=== PATIENT | female | born 1935 | race Caucasian/White ===

== ENCOUNTER → 2017-05-25 | Outpatient (CLI) | payer MEDICARE, BC ==
[~2017-05-25] MED LIST: DENOSUMAB 60 MG/ML 1 ML SYRINGE SQ NR
[2017-05-25 08:59] VITALS: BP 193/91; PULSE 72; RESP 16; TEMP 97
== END | disposition home or self-care (01) ==
LOC: PROCWHC3 08:41
PROVIDERS: ATTEND Family Medicine
DX: M81.0 Age-related osteoporosis without current pathological fracture (principal)
CPT/HCPCS: 96372; J0897

== ENCOUNTER → 2017-11-26 | Outpatient (CLI) | payer MEDICARE, BC ==
[~2017-11-26] MED LIST changes: -DENOSUMAB 60 MG/ML 1 ML SYRINGE SQ NR; +DENOSUMAB 60 MG/ML 1 ML SYRINGE SQ ONE
[2017-11-26 13:49] VITALS: BP 177/82; PULSE 72; RESP 17; TEMP 97.9
== END | disposition home or self-care (01) ==
LOC: PROCWHC3 13:26
PROVIDERS: ATTEND Family Medicine
DX: M81.0 Age-related osteoporosis without current pathological fracture (principal)
CPT/HCPCS: 96372; J0897

== ENCOUNTER 2019-08-22 15:37 | Emergency (ER) | payer BC, MEDICARE ==
[2019-08-22 15:53] VITALS: RESP 18; TEMP 98.3
[2019-08-22] MEDS ORDERED: LIDOCAINE 1% INJ 10MG/ML (20 ML MDV) SQ ONE (16:02)
[2019-08-22] MEDS ORDERED: DIPH,PERTUS(ACELL)TETVAC-LF 0.5 ML VIAL IM ONE (16:02)
--- NOTE | 2019-08-22 16:42 | CT ---
EXAMINATION TYPE: CT brain roger wo con DATE OF EXAM: 08/22/2019 COMPARISON: None HISTORY: Trip and fall with right sided head injury. CT DLP: 1297.3 mGycm, Automated exposure control for dose reduction was used. CONTRAST: Patient injected with 0 mL of Isovue 300. CT of the brain is performed utilizing 3 mm thick sections through the posterior fossa and 3 mm thick sections through the remaining calvarium. Study is performed within 24 hours of arrival to the hospital. Soft tissue injury is over the right temporal and frontal regions. There is prominent soft tissue swe lling over the left frontal parietal vertex. No underlying fractures are evident. No abnormal hyperdensity is present to suggest an acute intracranial hemorrhage. No mass lesion is evident. No acute infarcts are evident. There is periventricular white matter hypodensity, likely on the basi s of chronic white matter ischemic changes. Ventricles and sulci are somewhat prominent for the patient age. Paranasal sinuses and mastoid air cells within the [id number] are clear. IMPRESSIONS: 1. Atrophy with periventricular white matter ischemic changes. 2. No acute intracranial process. 3. Prominent swelling over the right frontal parietal vertex with overlying soft tissue injury. CT cervical spine. COMPARISON: None CT of the cervical spine is performed in the axial plane at 2 mm thick sections. Reconstructed image s in the coronal, and sagittal plane are reviewed on the computer. No acute fractures are evident. There is a grade 1 spondylolisthesis of C2 anteriorly on C3. Degenerative disc changes are present throughout the cervical spine. Vertebral body heights are preserved. No spinal canal stenosis is evident. There is some left foraminal narrowing due to facet hypertrophy at C2-C3. Severe left foraminal steno sis is present due to uncovertebral joint hypertrophy and facet hypertrophy C3-4. Bilateral foraminal narrowing is present C4-5 due to uncovertebral joint hypertrophy. Milder foraminal narrowing is pres ent C5-C6 due to uncovertebral joint hypertrophy. Advanced Emphysematous changes are present within the upper lung nye. IMPRESSIONS: 1. Degenerative disc changes. 2. Grade 1 spondylolisthesis C2 anteriorly on C3. 3. Foraminal narrowing due to uncovertebral joint hypertrophy and facet hypertrophy discussed above. 4. Advanced emphysematous changes
[2019-08-22] MEDS ORDERED: LIDOCAINE 0.5%-EPI 1:200,000 50 ML VIAL SQ STA (18:26)
[2019-08-22] MEDS ORDERED: CEPHALEXIN 500MG STARTER PACK 4 CAP BTL PO STA (18:48)
--- NOTE | 2019-08-22 18:50 | ED ---
Head Injury HPI - General Chief complaint: Head Injury Stated complaint: fall, laceration Time Seen by Provider: 08/22/19 16:03 Source: patient Mode of arrival: ambulatory Limitations: no limitations - History of Present Illness Initial comments: Pleasant well appearing 84yo female with no history of anticoagulation is presenting today for chief complaint of fall with right-sided scalp laceration. Patient states that she was moving too fast and lost her balance outside she states she could have possibly slipped on ice. Patient states she fell striking her scalp on a brick. Patient states they're unable to control the bleeding at home and presented to the ER for evaluation. Patient denies any headache dizziness nausea vomiting neck pain denies any pain of the extremities upper and lower back. Patient denies any chest pain shortness of breath and states she was feeling normal prior to the trip and fall. She states she did not lose consciousness. Patient has no other complaints upon arrival she appears well in no distress. Bandage in place on head. - Related Data Home Medications Medication Instructions Recorded Confirmed Aspirin [Adult Low Dose Aspirin EC] 81 mg PO HS 11/26/17 08/22/19 Alendronate Sodium [Fosamax] 70 mg PO BUI 08/22/19 08/22/19 Atorvastatin [Lipitor] 80 mg PO HS 08/22/19 08/22/19 Calcium Carbonate [Calcium] 600 mg PO HS 08/22/19 08/22/19 Cholecalciferol [Vitamin D3 (25 1,000 unit PO HS 08/22/19 08/22/19 Mcg = 1000 Iu)] Enalapril [Vasotec] 10 mg PO DAILY 08/22/19 08/22/19 Enalapril [Vasotec] 20 mg PO HS 08/22/19 08/22/19 Hydrochlorothiazide [Hydrodiuril] 25 mg PO DAILY 08/22/19 08/22/19 Metoprolol Succinate [Toprol XL] 25 mg PO DAILY 08/22/19 08/22/19 Allergies/Adverse reactions: Allergies Allergy/AdvReac Type Severity Reaction Status Date / Time No Known Allergies Allergy Verified 08/22/19 22:46 Review of Systems ROS Statement: Those systems with pertinent positive or pertinent negative responses have been documented in the HPI. ROS Other: All systems not noted in ROS Statement are negative. Past Medical History Past Medical History: Hypertension Past Surgical History: Breast Surgery Past Psychological History: No Psychological Hx Reported Smoking Status: Former smoker Past Alcohol Use History: None Reported Past Drug Use History: None Reported General Exam - General Exam Comments Initial Comments: General: The patient is awake and alert, in no distress Eye: +3 mm pupils are equal, round and reactive to light, extra-ocular movements are intact. No nystagmus. There is normal conjunctiva bilaterally. No signs of icterus. Ears, nose, mouth and throat: There are moist mucous membranes and no oral lesions. No raccoon or amin sign, TM WNL b/l/ Neck: The neck is supple, there is no tenderness or JVD. No midline tenderness to patient the cervical spine with full range of motion, no tenderness with ROM. Cardiovascular: There is a regular rate and rhythm. No murmur, rub or gallop is appreciated. Respiratory: Lungs are clear to auscultation, respirations are non-labored, breath sounds are equal. No wheezes, stridor, rales, or rhonchi. Gastrointestinal: Soft, non-distended, non-tender abdomen without masses or organomegaly noted. There is no rebound or guarding present. Musculoskeletal: Normal ROM, no tenderness. Strength 5/5 of the UE and LE b/l. Sensation intact of the UE and LE b/l. Radial pulses equal bilaterally 2+. Neurological: A&O x 3. CN II-XII intact, There are no obvious motor or sensory deficits. Coordination appears grossly intact. Speech is normal. Skin: Skin is warm and dry and no rashes. Laceration deformity in the middle of a large hematoma of the right parietal region of the scalp, exposure of vasculature and adipose. Bleeding controlled on initial evaluation. No crepitus to palpation or indentions of the scalp. Psychiatric: Cooperative, appropriate mood & affect, normal judgment. Limitations: no limitations Course Vital Signs 08/22/19 08/22/19 08/22/19 15:49 18:56 20:13 Temperature 98.3 F 98.3 F Pulse Rate 71 63 63 Respiratory 18 18 18 Rate Blood Pressure 204/98 159/71 159/71 O2 Sat by Pulse 98 96 96 Oximetry Procedures - Laceration Laceration #1 Consent Obtained: verbal consent Indication: laceration Site: scalp Size (cm): 7 Description: linear Depth: simple, single layer Anesthetic Used: lidocaine 1%, with epi Anesthesia Technique: local infiltration Amount (mls): 6 Pre-repair: wound explored, irrigated extensively, deep structures intact Type of Sutures: other (ramiro) Size of Sutures: other (ramiro) Number of Sutures: 9 Technique: other (ramiro) Patient Tolerated Procedure: well, no complications Medical Decision Making - Medical Decision Making 84-year-old female presenting today for chief complaint of fall with head laceration, large hematoma. CT (-) for hemorrhage. No cervical pain, no ossesous injury noted. Entire scalp and laceration was cleanses and examinted localized one large laceration and was unable due to the taunt nature of the skin surrounding by hematoma to approximate the wound edges. Cleansed with iodine, irrigated. Dr. Valadez evaluated wound, 9 ramiro placed to approximate would edges after shaving area and obtaining consent to perform ramiro instead of suture, family and patient is aware that there will be less of a cosmetic appearance with ramiro vs suture. Patient bleeding controlled s/p staple placement. Monitored in the ER to assess for any further bleeding/expanding hematoma or dizziness. Patient continues to request discharge and multiple reevaluations patient continues to appears well, VS stable, no dizziness, or GOMEZ, bleeding controlled--- patient was discharged with PCP f/u as well as in 7 days for suture removal. Family beside and patient agreeable to discharge and return parameter. Disposition Clinical Impression: Head injury, Scalp hematoma, Scalp laceration, Fall Disposition: HOME SELF-CARE Condition: Good Instructions (If sedation given, give patient instructions): Care For Your Stitches (ED), Concussion (ED) Additional Instructions: Please use medication as discussed. Please follow-up with family doctor in the next 2 days, and return to the ER for more than a mild ooze of the incision, return for staple removal in 7 days. Please return to emergency room if the symptoms increase or worsen or for any other concerns. Is patient prescribed a controlled substance at d/c from ED?: No Referrals: Fredy Mo MD [Primary Care Provider] - 1-2 days Time of Disposition: 18:50
[2019-08-22 18:56] VITALS: BP 159/71; PULSE 63
== END 2019-08-22 20:15 | disposition home or self-care (01) ==
LOC: EC 15:37
DX: S01.01XA Laceration without foreign body of scalp, initial encounter (principal); I10 Essential (primary) hypertension; Z87.891 Personal history of nicotine dependence; Z79.82 Long term (current) use of aspirin; Z79.899 Other long term (current) drug therapy; Z23 Encounter for immunization; W01.198A Fall on same level from slipping, tripping and stumbling with subsequent striking against other object, initial encounter; Y93.89 Activity, other specified; Y92.89 Other specified places as the place of occurrence of the external cause; Z53.8 Procedure and treatment not carried out for other reasons
CPT/HCPCS: 72125; 70450; 90715; 99283; 12002; 90471; J2001

== ENCOUNTER 2019-08-22 22:13 | Emergency (ER) | payer MEDICARE ==
[2019-08-22 22:20] VITALS: TEMP 97.4
[2019-08-22] MEDS ORDERED: SODIUM CHLORIDE 0.9% 1,000 ML IV STA (23:13)
--- NOTE | 2019-08-22 23:13 | ED ---
Dizziness HPI - General Chief Complaint: Syncope Stated Complaint: Near Syncope Time Seen by Provider: 08/22/19 22:27 Source: EMS, RN notes reviewed, old records reviewed Mode of arrival: EMS Limitations: no limitations - History of Present Illness Initial Comments: This is an 84-year-old female seen in the ER for evaluation. Patient was seen earlier today for fall, follow the head injury lack repair, patient was given Keflex in the ER discharge home. Patient a near dizziness lightheadedness or for exudative pass out at home did not pass out headache was mildly worsen prior. Otherwise no new trauma no chest pain or shortness of breath no abdomi nal pain. No other new medications MD Complaint: dizziness (While arriving at home after ER stay) -: hour(s) Timing: gradual onset Description: lightheadedness, nausea, near-syncope History of Same: No History of Trauma: Yes Severity: mild Improves With: nothing Worsens With: nothing Associated Symptoms: weakness - Related Data Home Medications Medication Instructions Recorded Confirmed Aspirin [Adult Low Dose Aspirin EC] 81 mg PO HS 11/26/17 08/22/19 Alendronate Sodium [Fosamax] 70 mg PO BUI 08/22/19 08/22/19 Atorvastatin [Lipitor] 80 mg PO HS 08/22/19 08/22/19 Calcium Carbonate [Calcium] 600 mg PO HS 08/22/19 08/22/19 Cholecalciferol [Vitamin D3 (25 1,000 unit PO HS 08/22/19 08/22/19 Mcg = 1000 Iu)] Enalapril [Vasotec] 10 mg PO DAILY 08/22/19 08/22/19 Enalapril [Vasotec] 20 mg PO HS 08/22/19 08/22/19 Hydrochlorothiazide [Hydrodiuril] 25 mg PO DAILY 08/22/19 08/22/19 Metoprolol Succinate [Toprol XL] 25 mg PO DAILY 08/22/19 08/22/19 Allergies Allergy/AdvReac Type Severity Reaction Status Date / Time No Known Allergies Allergy Verified 08/22/19 22:46 Review of Systems ROS Statement: Those systems with pertinent positive or pertinent negative responses have been documented in the HPI. ROS Other: All systems not noted in ROS Statement are negative. Past Medical History Past Medical History: Hypertension History of Any Multi-Drug Resistant Organisms: None Reported Past Surgical History: Breast Surgery Past Psychological History: No Psychological Hx Reported Smoking Status: Former smoker Past Alcohol Use History: None Reported Past Drug Use History: None Reported General Exam Limitations: no limitations General appearance: alert, in no apparent distress Head exam: Present: normocephalic, normal inspection. Absent: atraumatic (Recent does have bandage on head) Eye exam: Present: normal appearance, PERRL, EOMI. Absent: scleral icterus, conjunctival injection, periorbital swelling ENT exam: Present: normal exam, mucous membranes moist Neck exam: Present: normal inspection. Absent: tenderness, meningismus, lymphadenopathy Respiratory exam: Present: normal lung sounds bilaterally. Absent: respiratory distress, wheezes, rales, rhonchi, stridor Cardiovascular Exam: Present: regular rate, normal rhythm, normal heart sounds. Absent: systolic murmur, diastolic murmur, rubs, gallop, clicks GI/Abdominal exam: Present: soft, normal bowel sounds. Absent: distended, tenderness, guarding, rebound, rigid Extremities exam: Present: normal inspection, full ROM, normal capillary refill. Absent: tenderness, pedal edema, joint swelling, calf tenderness Back exam: Present: normal inspection Neurological exam: Present: alert, oriented X3, CN II-XII intact Psychiatric exam: Present: normal affect, normal mood Skin exam: Present: warm, dry, intact, normal color. Absent: rash Course Vital Signs 08/22/19 22:15 Temperature 97.4 F L Pulse Rate 60 Respiratory 16 Rate Blood Pressure 128/74 O2 Sat by Pulse 99 Oximetry - Reevaluation(s) Reevaluation #1: 08/22/19 23:47 Medical record in the ER visit are reviewed Reevaluation #2: 08/22/19 23:47 Patient is able and white without difficulty EKG Findings - EKG Comments: EKG Findings:: EKG shows sinus bradycardia rate of 59, OH 134, QRS 90, QTc 477 Medical Decision Making - Medical Decision Making 84 female DF for evaluation of a near syncopal upon arrival at home dizziness is now resolved. No headache chest pain shortness breath or abdominal pain while she does have hyperactive unchanged from prior CT here in the ER is negative for acute disease a patient can be discharged home - Lab Data Result diagrams: 08/22/19 22:25 08/22/19 22:25 Lab Results 08/22/19 08/22/19 Range/Units 22:25 22:25 WBC 8.8 (3.8-10.6) k/uL RBC 3.81 (3.80-5.40) m/uL Hgb 11.1 L (11.4-16.0) gm/dL Hct 34.3 (34.0-46.0) % MCV 90.1 (80.0-100.0) fL MCH 29.1 (25.0-35.0) pg MCHC 32.3 (31.0-37.0) g/dL RDW 14.5 (11.5-15.5) % Plt Count 229 (150-450) k/uL Neutrophils % 76 % Lymphocytes % 15 % Monocytes % 5 % Eosinophils % 1 % Basophils % 1 % Neutrophils # 6.7 (1.3-7.7) k/uL Lymphocytes # 1.4 (1.0-4.8) k/uL Monocytes # 0.5 (0-1.0) k/uL Eosinophils # 0.1 (0-0.7) k/uL Basophils # 0.0 (0-0.2) k/uL Sodium 134 L (137-145) mmol/L Potassium 3.4 L (3.5-5.1) mmol/L Chloride 101 (98-107) mmol/L Carbon Dioxide 27 (22-30) mmol/L Anion Gap 6 mmol/L BUN 22 H (7-17) mg/dL Creatinine 0.73 (0.52-1.04) mg/dL Est GFR (CKD-EPI)AfAm 88 (>60 ml/min/1.73 sqM) Est GFR (CKD-EPI)NonAf 76 (>60 ml/min/1.73 sqM) Glucose 152 H (74-99) mg/dL Calcium 9.2 (8.4-10.2) mg/dL Phosphorus 4.0 (2.5-4.5) mg/dL Magnesium 2.0 (1.6-2.3) mg/dL Total Bilirubin 0.7 (0.2-1.3) mg/dL AST 33 (14-36) U/L ALT 14 (4-34) U/L Alkaline Phosphatase 75 (38-126) U/L Total Protein 5.9 L (6.3-8.2) g/dL Albumin 3.5 (3.5-5.0) g/dL - Radiology Data Radiology results: report reviewed (CT brain negative for acute disease), image reviewed Disposition Clinical Impression: Near syncope, Dizziness Disposition: HOME SELF-CARE Condition: Good Instructions (If sedation given, give patient instructions): Dizziness (ED) Is patient prescribed a controlled substance at d/c from ED?: No Referrals: Fredy Mo MD [Primary Care Provider] - 1-2 days
[2019-08-22 23:30] LABS: Basophils % (A) 1 %; Eosinophils # (A) 0.1 k/uL (0-0.7); Eosinophils % (A) 1 %; HCT 34.3 % (34.0-46.0); HGB 11.1 gm/dL (11.4-16.0); Lymphocytes # (A) 1.4 k/uL (1.0-4.8); Lymphocytes % (A) 15 %; MCH 29.1 pg (25.0-35.0); MCHC 32.3 g/dL (31.0-37.0); MCV 90.1 fL (80.0-100.0); Mean Platelet Volume 8.5; Monocytes # (A) 0.5 k/uL (0-1.0); Monocytes % (A) 5 %; Neutrophils # (A) 6.7 k/uL (1.3-7.7); Neutrophils % (A) 76 %; Platelet Count 229 k/uL (150-450); RBC 3.81 m/uL (3.80-5.40); RDW 14.5 % (11.5-15.5); WBC 8.8 k/uL (3.8-10.6)
--- NOTE | 2019-08-22 23:38 | CT ---
EXAMINATION TYPE: CT brain wo con DATE OF EXAM: 08/22/2019 COMPARISON: Today HISTORY: syncope CT DLP: 1170.4 mGycm Automated exposure control for dose reduction was used. Multiple axial sections were obtained of the brain without contrast. There is cerebral cortical atrophy. There is right posterior frontal scalp hematoma. There is no mass effect nor midline shift. There is no sign of intracranial hemorrhage. There is some mild patchy whi te matter hypodensity in both cerebral hemispheres. The skull base is intact. There is no evidence of a fracture. There are skin ramiro in the right frontal scalp. IMPRESSION: Right frontal scalp hematoma is decreased in thickness compared to exam earlier today. No acute intra cranial abnormality. There is some cerebral atrophy and chronic small vessel ischemia.
[2019-08-22 23:43] LABS: Albumin 3.5 g/dL (3.5-5.0); Calcium 9.2 mg/dL (8.4-10.2); Potassium 3.4 mmol/L (3.5-5.1); Total Bilirubin 0.7 mg/dL (0.2-1.3); Total Protein 5.9 g/dL (6.3-8.2)
[2019-08-22] MEDS ORDERED: POTASSIUM BICARBONATE/CIT AC 20 MEQ TABLET.EFF PO ONE (23:46)
[2019-08-22 23:54] LABS: Prothrombin Time 10.2 sec (9.0-12.0)
[2019-08-23 00:12] LABS: Partial Thromboplastin Time 19.5 sec (22.0-30.0)
[2019-08-23 00:48] VITALS: BP 122/60; PULSE 67; RESP 18
== END 2019-08-23 01:07 | disposition home or self-care (01) ==
LOC: EC 22:13
DX: R55 Syncope and collapse (principal); R42 Dizziness and giddiness; I10 Essential (primary) hypertension; Z79.899 Other long term (current) drug therapy; Z79.82 Long term (current) use of aspirin; Z87.891 Personal history of nicotine dependence
CPT/HCPCS: 36415; 70450; 80053; 83735; 83880; 84100; 84484; 85025; 85610; 85730; 93005; 96360; 99285

== ENCOUNTER → 2023-02-12 | Outpatient (CLI) | payer MEDICARE ==
--- NOTE | 2023-02-12 14:15 | US ---
EXAMINATION TYPE: US arterial LE single level DATE OF EXAM: 02/12/2023 1:56 PM CLINICAL INDICATION: Female, 87 years old with history of M79.669 PAIN IN LOWER LEG; History of: Smoker: Previous Hypertension: Yes Diabetic: No Hyperlipidemia: Yes TIA/CVA: No Previous Vascular Surgery: No IL: No Vascular Ulcers: No Claudication: No Gangrene: No Right Brachial Pressure: 134 Left Brachial Pressure: 147 Ankle-Brachial Indices: Right: 1.02 Left: 1.01 Toe Brachial Indices: Right: 0.65 Left: 0.70 IMPRESSION: 1. Normal [place] indices. 2. Borderline normal TBI indices. No diagnostic evidence of significant atherosclerotic
== END | disposition home or self-care (01) ==
LOC: RADUSWWP 12:47
PROVIDERS: ATTEND Family Medicine
DX: M79.669 Pain in unspecified lower leg (principal); E78.5 Hyperlipidemia, unspecified; I10 Essential (primary) hypertension; Z87.891 Personal history of nicotine dependence
CPT/HCPCS: 93922

== ENCOUNTER 2023-11-03 09:55 | Inpatient (IN) | payer MEDICARE ==
--- NOTE | 2023-11-03 10:47 | ED ---
General Adult HPI - General Chief complaint: Shortness of Breath Stated complaint: Fever Time Seen by Provider: 11/03/23 10:30 Source: patient, family, RN notes reviewed, old records reviewed Mode of arrival: ambulatory Limitations: no limitations - History of Present Illness Initial comments: 88-year-old female presenting with cough and dyspnea, has been present for the past 2 weeks but worse over the past 3 days. There is been fever. Nonproductive cough. Some confusion. Patient has history of COPD. No central chest pain. No abdominal pain. No lower extremity pain or swelling. - Related Data Home Medications Medication Instructions Recorded Confirmed Alendronate Sodium [Fosamax] 70 mg PO BUI 08/22/19 11/03/23 Atorvastatin [Lipitor] 80 mg PO DAILY 08/22/19 11/03/23 Metoprolol Succinate [Toprol XL] 25 mg PO DAILY 08/22/19 11/03/23 Albuterol Sulfate [Albuterol 2 puff PO RT-Q6H PRN 11/03/23 11/03/23 Sulfate Hfa] Ipratropium-Albuterol Nebulize 3 ml INHALATION RT-QID 11/03/23 11/03/23 [Duoneb 0.5 mg-3 mg/3 ml Soln] Losartan/Hydrochlorothiazide 1 tab PO DAILY 11/03/23 11/03/23 [Hyzaar 100-12.5 Tablet] Allergies Allergy/AdvReac Type Severity Reaction Status Date / Time No Known Allergies Allergy Verified 11/03/23 11:24 Review of Systems ROS Statement: Those systems with pertinent positive or pertinent negative responses have been documented in the HPI. ROS Other: All systems not noted in ROS Statement are negative. Past Medical History Past Medical History: Hypertension History of Any Multi-Drug Resistant Organisms: None Reported Past Surgical History: Breast Surgery Past Psychological History: No Psychological Hx Reported Past Alcohol Use History: None Reported Past Drug Use History: None Reported General Exam Limitations: no limitations General appearance: alert, in no apparent distress Head exam: Present: atraumatic, normocephalic Eye exam: Present: normal appearance, PERRL ENT exam: Present: normal exam Neck exam: Present: normal inspection. Absent: tenderness, meningismus Respiratory exam: Present: respiratory distress, wheezes, rhonchi, decreased breath sounds, prolonged expiratory Cardiovascular Exam: Present: regular rate, normal rhythm GI/Abdominal exam: Present: soft. Absent: distended, tenderness, guarding Extremities exam: Present: normal inspection, normal capillary refill Neurological exam: Present: alert, CN II-XII intact. Absent: motor sensory deficit Psychiatric exam: Present: normal affect, normal mood Skin exam: Present: warm, dry, intact Course Vital Signs 11/03/23 11/03/23 11/03/23 10:20 10:30 10:33 Temperature 98.3 F 98.9 F Pulse Rate 94 83 Respiratory 20 24 22 Rate Blood Pressure 107/65 112/55 O2 Sat by Pulse 76 L 86 L Oximetry 11/03/23 11/03/23 11/03/23 12:02 12:24 12:40 Temperature Pulse Rate 74 71 76 Respiratory Rate Blood Pressure 101/53 O2 Sat by Pulse 98 Oximetry 11/03/23 13:17 Temperature Pulse Rate 74 Respiratory 18 Rate Blood Pressure 91/50 O2 Sat by Pulse 94 L Oximetry Medical Decision Making - Medical Decision Making Was pt. sent in by a medical professional or institution (, PA, RISK ASSESSMENT CONSULTANT, urgent care, hospital, or care home...) When possible be specific @ -No Did you speak to anyone other than the patient for history (EMS, parent, family, police, friend...)? What history was obtained from this source @Patient's daughter Did you review nursing and triage notes (agree or disagree)? Why? @ -I reviewed and agree with nursing and triage notes Were old charts reviewed (outside hosp., previous admission, EMS record, old EKG, old radiological studies, urgent care reports/EKG's, care home records)? Report findings @ -No old charts were reviewed Differential Dyspnea: Coronary syndrome, arrhythmia, tamponade, asthma, COPD, pulmonary embolism, pneumonia, pneumothorax, pulmonary effusion, anaphylaxis, diabetic ketoacidosis, flailed chest, pulmonary contusion, diaphragmatic rupture, anemia, ne uromuscular, this is not meant to be an all-inclusive list. EKG interpreted by me (3pts min.). @EKG: Sinus rhythm rate of 74, IA interval 165, QRS duration 105, QTc [address] segment elevation. X-rays interpreted by me (1pt min.). @ -Chest x-ray shows hyperinflation, right lower lobe infiltrate consistent with pneumonia CT interpreted by me (1pt min.). @ -None done U/S interpreted by me (1pt. min.). @ -None done What testing was considered but not performed or refused? (CT, X-rays, U/S, lab s)? Why? @ -None What meds were considered but not given or refused? Why? @ -None Did you discuss the management of the patient with other professionals (professionals i.e. Dr., PA, RISK ASSESSMENT CONSULTANT, lab, RT, psych nurse, social security assessor, military lawyer, teacher, seal delivery vehicle officer, casework supervisor)? Give summary @[facility] physician group Was smoking cessation discussed for >3mins.? @ -No Was critical care preformed (if so, how long)? @Yes, 35 minutes Were there social determinants of health that impacted care today? How? (Ho melessness, low income, unemployed, alcoholism, drug addiction, transportation, low edu. Level, literacy, decrease access to med. care, half-way, rehab)? @ -No Was there de-escalation of care discussed even if they declined (Discuss DNR or withdrawal of care, Hospice)? DNR status @ -No What co-morbidities impacted this encounter? (DM, HTN, Smoking, COPD, CAD, Cancer, CVA, ARF, Chemo, Hep., AIDS, mental health diagnosis, sleep apnea, morbid obesity)? @COPD Was patient admitted / discharged? Hospital course, mention meds given and route, prescriptions, significant lab abnormalities, going to OR and other pertinent info. @ -88-year-old female with increased cough and dyspnea. Patient hypoxic upon arrival with wheezing and rhonchi bilaterally. She is afebrile. X-ray does show concern for developing pneumonia. She has a mild leukocytosis. She is anemic. She has an MK with elevated creatinine. After supplemental oxygen, albuterol, Atrovent, and steroids she is significantly improved. She will be admitted for COPD exacerbation with pneumonia. Undiagnosed new problem with uncertain prognosis? @ -No Drug Therapy requiring intensive monitoring for toxicity (Heparin, Nitro, Insulin, Cardizem)? @ -No Were any procedures done? @ -No Diagnosis/symptom? @COPD exacerbation, pneumonia Acute, or Chronic, or Acute on Chronic? @Acute Uncomplicated (without systemic symptoms) or Complicated (systemic symptoms)? @ -Default Side effects of treatment? @ -No Exacerbation, Progression, or Severe Exacerbation? @ -No Poses a threat to life or bodily function? How? (Chest pain, [place], [place], pneumonia, PE, COPD, DKA, ARF, appy, cholecystitis, CVA, Diverticulitis, Homicidal, Suicidal, threat to staff... and all critical care pts) @Yes, COPD, sepsis - Lab Data Result diagrams: 11/03/23 13:05 11/03/23 13:05 Lab Results 11/03/23 11/03/23 11/03/23 Range/Units 12:00 12:02 13:05 WBC 11.2 H (3.8-10.6) k/uL RBC 4.03 (3.80-5.40) m/uL Hgb 9.1 L (11.4-16.0) gm/dL Hct 31.0 L (34.0-46.0) % MCV 76.8 L (80.0-100.0) fL MCH 22.6 L (25.0-35.0) pg MCHC 29.5 L (31.0-37.0) g/dL RDW 16.4 H (11.5-15.5) % Plt Count 219 (150-450) k/uL MPV 9.4 Neutrophils % 88 % Lymphocytes % 4 % Monocytes % 5 % Eosinophils % 0 % Basophils % 0 % Neutrophils # 9.8 H (1.3-7.7) k/uL Lymphocytes # 0.4 L (1.0-4.8) k/uL Monocytes # 0.5 (0-1.0) k/uL Eosinophils # 0.0 (0-0.7) k/uL Basophils # 0.0 (0-0.2) k/uL Hypochromasia Marked Poikilocytosis Slight Anisocytosis Slight Microcytosis Slight PT 11.1 (10.0-12.5) sec INR 1.0 (<1.2) APTT 26.1 (22.0-30.0) sec VBG pH (7.31-7.41) VBG pCO2 (37-51) mmHg VBG HCO3 (24-28) mmol/L Sodium (137-145) mmol/L Potassium (3.5-5.1) mmol/L Chloride (98-107) mmol/L Carbon Dioxide (22-30) mmol/L Anion Gap mmol/L BUN (7-17) mg/dL Creatinine (0.52-1.04) mg/dL Est GFR (CKD-EPI)AfAm (>60 ml/min/1.73 sqM) Est GFR (CKD-EPI)NonAf (>60 ml/min/1.73 sqM) Glucose (74-99) mg/dL Plasma Lactic Acid Otis (0.7-2.0) mmol/L Calcium (8.4-10.2) mg/dL Magnesium (1.6-2.3) mg/dL Total Bilirubin (0.2-1.3) mg/dL AST (14-36) U/L ALT (4-34) U/L Alkaline Phosphatase (38-126) U/L Troponin I (0.000-0.034) ng/mL Total Protein (6.3-8.2) g/dL Albumin (3.5-5.0) g/dL Influenza Type A (PCR) Not Detected (Not Detectd) Influenza Type B (PCR) Not Detected (Not Detectd) RSV (PCR) Not Detected (Not Detectd) SARS-CoV-2 (PCR) Not Detected (Not Detectd) 11/03/23 11/03/23 11/03/23 Range/Units 13:05 13:05 13:05 WBC (3.8-10.6) k/uL RBC (3.80-5.40) m/uL Hgb (11.4-16.0) gm/dL Hct (34.0-46.0) % MCV (80.0-100.0) fL MCH (25.0-35.0) pg MCHC (31.0-37.0) g/dL RDW (11.5-15.5) % Plt Count (150-450) k/uL MPV Neutrophils % % Lymphocytes % % Monocytes % % Eosinophils % % Basophils % % Neutrophils # (1.3-7.7) k/uL Lymphocytes # (1.0-4.8) k/uL Monocytes # (0-1.0) k/uL Eosinophils # (0-0.7) k/uL Basophils # (0-0.2) k/uL Hypochromasia Poikilocytosis Anisocytosis Microcytosis PT (10.0-12.5) sec INR (<1.2) APTT (22.0-30.0) sec VBG pH (7.31-7.41) VBG pCO2 (37-51) mmHg VBG HCO3 (24-28) mmol/L Sodium 136 L (137-145) mmol/L Potassium 3.4 L (3.5-5.1) mmol/L Chloride 102 (98-107) mmol/L Carbon Dioxide 23 (22-30) mmol/L Anion Gap 11 mmol/L BUN 60 H (7-17) mg/dL Creatinine 1.64 H (0.52-1.04) mg/dL Est GFR (CKD-EPI)AfAm 32 (>60 ml/min/1.73 sqM) Est GFR (CKD-EPI)NonAf 28 (>60 ml/min/1.73 sqM) Glucose 117 H (74-99) mg/dL Plasma Lactic Acid Otis 0.8 (0.7-2.0) mmol/L Calcium 8.3 L (8.4-10.2) mg/dL Magnesium 2.3 (1.6-2.3) mg/dL Total Bilirubin 1.3 (0.2-1.3) mg/dL AST 52 H (14-36) U/L ALT 31 (4-34) U/L Alkaline Phosphatase 94 (38-126) U/L Troponin I <0.012 (0.000-0.034) ng/mL Total Protein 5.6 L (6.3-8.2) g/dL Albumin 2.9 L (3.5-5.0) g/dL Influenza Type A (PCR) (Not Detectd) Influenza Type B (PCR) (Not Detectd) RSV (PCR) (Not Detectd) SARS-CoV-2 (PCR) (Not Detectd) 11/03/23 Range/Units 13:05 WBC (3.8-10.6) k/uL RBC (3.80-5.40) m/uL Hgb (11.4-16.0) gm/dL Hct (34.0-46.0) % MCV (80.0-100.0) fL MCH (25.0-35.0) pg MCHC (31.0-37.0) g/dL RDW (11.5-15.5) % Plt Count (150-450) k/uL MPV Neutrophils % % Lymphocytes % % Monocytes % % Eosinophils % % Basophils % % Neutrophils # (1.3-7.7) k/uL Lymphocytes # (1.0-4.8) k/uL Monocytes # (0-1.0) k/uL Eosinophils # (0-0.7) k/uL Basophils # (0-0.2) k/uL Hypochromasia Poikilocytosis Anisocytosis Microcytosis PT (10.0-12.5) sec INR (<1.2) APTT (22.0-30.0) sec VBG pH 7.40 (7.31-7.41) VBG pCO2 42 (37-51) mmHg VBG HCO3 26 (24-28) mmol/L Sodium (137-145) mmol/L Potassium (3.5-5.1) mmol/L Chloride (98-107) mmol/L Carbon Dioxide (22-30) mmol/L Anion Gap mmol/L BUN (7-17) mg/dL Creatinine (0.52-1.04) mg/dL Est GFR (CKD-EPI)AfAm (>60 ml/min/1.73 sqM) Est GFR (CKD-EPI)NonAf (>60 ml/min/1.73 sqM) Glucose (74-99) mg/dL Plasma Lactic Acid Otis (0.7-2.0) mmol/L Calcium (8.4-10.2) mg/dL Magnesium (1.6-2.3) mg/dL Total Bilirubin (0.2-1.3) mg/dL AST (14-36) U/L ALT (4-34) U/L Alkaline Phosphatase (38-126) U/L Troponin I (0.000-0.034) ng/mL Total Protein (6.3-8.2) g/dL Albumin (3.5-5.0) g/dL Influenza Type A (PCR) (Not Detectd) Influenza Type B (PCR) (Not Detectd) RSV (PCR) (Not Detectd) SARS-CoV-2 (PCR) (Not Detectd) Critical Care Time Critical Care Time: Yes Total Critical Care Time: 35 Disposition Clinical Impression: Community acquired pneumonia, Acute exacerbation of chronic obstructive pulmonary disease Disposition: ADMITTED IP TO THIS HOSP Condition: Stable Is patient prescribed a controlled substance at d/c from ED?: No Referrals: Radha Arshad NPC [REFERRING] - 1-2 days Time of Disposition: 14:33
[2023-11-03 12:22] LABS: Partial Thromboplastin Time 26.1 sec (22.0-30.0); Prothrombin Time 11.1 sec (10.0-12.5)
[2023-11-03] MEDS: ALBUTEROL NEBULIZED 2.5 MG/3 ML INHALATION STA (12:23)
--- NOTE | 2023-11-03 12:31 | XR ---
EXAMINATION TYPE: XR chest 2V DATE OF EXAM: 11/03/2023 12:19 PM CLINICAL INDICATION:Female, 88 years old with history of difficulty breathing; PHH COMPARISON: None. TECHNIQUE: XR chest 2V Frontal and lateral views of the chest. FINDINGS: Lungs/Pleura: Airspace opacity over the right lower lobe may represent a developing pneumonia. Left l janee and right upper lobe are clear. No pleural effusions or pneumothorax identified. Pulmonary vascularity: Unremarkable. Heart/mediastinum: Cardiomediastinal silhouette is unremarkable. Musculoskeletal: No acute osseous pathology. Other findings: None Lines/Tubes: Tracheostomy cannula tip projecting over the trachea. IMPRESSION: No acute cardiopulmonary disease/process.
[2023-11-03] MEDS: AZITHROMYCIN 500 MG in SODIUM CHLORIDE 0.9% 250 ML IVPB STA (12:42)
[2023-11-03] MEDS: methylPREDNISolone SOD SUCCI 125 MG/2 ML VIAL IV SCH (12:42)
[2023-11-03 13:24] LABS: VBG PH 7.4 (7.31-7.41)
[2023-11-03 13:42] LABS: Anisocytosis Slight; Basophils % (A) 0 %; Eosinophils % (A) 0 %; HGB 9.1 gm/dL (11.4-16.0); Hypochromasia Marked; Lymphocytes # (A) 0.4 k/uL (1.0-4.8); Lymphocytes % (A) 4 %; MCH 22.6 pg (25.0-35.0); MCHC 29.5 g/dL (31.0-37.0); MCV 76.8 fL (80.0-100.0); Mean Platelet Volume 9.4; Microcytosis Slight; Monocytes # (A) 0.5 k/uL (0-1.0); Monocytes % (A) 5 %; Neutrophils # (A) 9.8 k/uL (1.3-7.7); Neutrophils % (A) 88 %; Platelet Count 219 k/uL (150-450); Poikilocytosis Slight; RBC 4.03 m/uL (3.80-5.40); RDW 16.4 % (11.5-15.5); WBC 11.2 k/uL (3.8-10.6)
[2023-11-03 14:16] LABS: ALT 31 U/L (4-34); AST 52 U/L (14-36); African American GFR (CKD) 32 (>60 ml/min/1.73 sqM); Albumin 2.9 g/dL (3.5-5.0); Alkaline Phosphatase 94 U/L (38-126); Anion Gap 11 mmol/L; Blood Urea Nitrogen 60 mg/dL (7-17); Calcium 8.3 mg/dL (8.4-10.2); Carbon Dioxide 23 mmol/L (22-30); Chloride 102 mmol/L (98-107); Glucose 117 mg/dL (74-99); Magnesium 2.3 mg/dL (1.6-2.3); Non-African American GFR(CKD) 28 (>60 ml/min/1.73 sqM); Potassium 3.4 mmol/L (3.5-5.1); Sodium 136 mmol/L (137-145); Total Bilirubin 1.3 mg/dL (0.2-1.3); Total Protein 5.6 g/dL (6.3-8.2)
[2023-11-03] MEDS ORDERED: NALOXONE 0.4 MG/ML 1 ML VIAL IVP PRN (14:29)
[2023-11-03] MEDS ORDERED: IPRATROPIUM-ALBUTEROL 3 ML NEB INHALATION PRN (14:29)
[2023-11-03] MEDS ORDERED: PNEUMONIA PROTOCOL UTILIZED 1 EACH MISC PO PRN (14:44)
--- NOTE | 2023-11-03 14:52 | P.HPIM ---
History of Present Illness H&P Date: 11/03/23 88 year old F with PMH of COPD, 60 PPD smoker, hypertension, dyslipidemia presents to the ED. Daughter is at bedside contributing to the history. She reports patient has been mostly sleeping since Thursday. She attended a on which may have been too stimulating. Recently obtained a nebulizer machine and has been doing treatments at home. Daughter reports a wet cough and 10 pound subjective weight loss over the past 2 weeks. She reports a poor appetite. In the ED, she underwent extensive evaluation. BP 107/65, HR 94, RR 20, T 98.3F, 76% on RA. CBC, Coag panel panel done significant for WBC 11.2, Hg 9.1, Hct 31, MCV 76.8. VBG pH 7.4, pCO2 42. COVID, Flu, RSV negative. CXR showed possible RLL PNA. Patient is admitted for further management. General: non toxic, no distress, appears at stated age Derm: warm, dry Head: atraumatic, normocephalic, symmetric Eyes: EOMI, no lid lag, pale sclera Mouth: no lip lesion, mucus membranes moist Cardiovascular: S1S2 reg, no murmur Lungs: Decreased bilateral, no rhonchi, no rales , no accessory muscle use Ext: no gross muscle atrophy, no edema, no contractures Neuro: no focal neuro deficits Psych: Alert, oriented, appropriate affect Based on my assessment of this patient, this patient meets a high complexity level of care. Patient has an acute diagnosis of acute hypoxic respiratory failure due to COPD exacerbation and PNA that poses a threat to life or bodily function. Acute hypoxic respiratory failure: Currently on 6L NC. Likely related to PNA. Obtain D-Dimer. Sepsis due to community acquired pneumonia: Patient meets sepsis criteria with leukocytosis, tachycardia, infiltrate on CXR. Rocephin 2g IV QD and Azithromycin 500 mg PO QD. Telemetry monitoring. NS at 75 cc/hr. Sputum and blood cultures. Legionella Ag. Repeat CXR tomorrow. Pulmonary consult. COPD exacerbation: DuoNeb QID scheduled and Q2H PRN for SOB/wheezing. SoluMedrol 60 mg IV Q8H. Microcytic anemia: Obtain iron studies. Hg 11.1 in 2019. Transfuse if Hg < 7. Hypertension: Now hypotensive. Hold Lisinopril, HCTZ and Metoprolol. Dyslipidemia: Lipitor 80 mg PO QD. CODE STATUS: FULL CODE. DVT Prophylaxis: Lovenox GI Prophylaxis: Protonix Designated medical POA if patient is not able to make medical decisions for themselves: Daughter I have reviewed the following field service consultant notes: ED note I have reviewed the results of the following tests: As above I have ordered the following tests: As above I have discussed the care of this patient with the following independent historian: Daughter I have independently interpreted the following test below: CXR I have discussed the management of this patient with the following physician: ED provider Past Medical History Past Medical History: Hypertension History of Any Multi-Drug Resistant Organisms: None Reported Past Surgical History: Breast Surgery Past Psychological History: No Psychological Hx Reported Past Alcohol Use History: None Reported Past Drug Use History: None Reported Medications and Allergies Home Medications Medication Instructions Recorded Confirmed Type Alendronate Sodium [Fosamax] 70 mg PO BUI 08/22/19 11/03/23 History Atorvastatin [Lipitor] 80 mg PO DAILY 08/22/19 11/03/23 History Metoprolol Succinate [Toprol XL] 25 mg PO DAILY 08/22/19 11/03/23 History Albuterol Sulfate [Albuterol 2 puff PO RT-Q6H PRN 11/03/23 11/03/23 History Sulfate Hfa] Ipratropium-Albuterol Nebulize 3 ml INHALATION RT-QID 11/03/23 11/03/23 History [Duoneb 0.5 mg-3 mg/3 ml Soln] Losartan/Hydrochlorothiazide 1 tab PO DAILY 11/03/23 11/03/23 History [Hyzaar 100-12.5 Tablet] Allergies Allergy/AdvReac Type Severity Reaction Status Date / Time No Known Allergies Allergy Verified 11/03/23 11:24 Physical Exam Vitals: Vital Signs Temp Pulse Resp BP Pulse Ox 11/03/23 13:17 74 18 91/50 94 L 11/03/23 12:40 76 11/03/23 12:24 71 11/03/23 12:02 74 101/53 98 11/03/23 10:33 98.9 F 83 22 112/55 86 L 11/03/23 10:30 24 11/03/23 10:20 98.3 F 94 20 107/65 76 L Intake and Output 11/02/23 11/03/23 11/03/23 22:59 06:59 14:59 Other: Weight 44.906 kg Results CBC & Chem 7: 11/03/23 13:05 11/03/23 13:05 Labs: Abnormal Lab Results - Last 24 Hours (Table) 11/03/23 11/03/23 Range/Units 13:05 13:05 WBC 11.2 H (3.8-10.6) k/uL Hgb 9.1 L (11.4-16.0) gm/dL Hct 31.0 L (34.0-46.0) % MCV 76.8 L (80.0-100.0) fL MCH 22.6 L (25.0-35.0) pg MCHC 29.5 L (31.0-37.0) g/dL RDW 16.4 H (11.5-15.5) % Neutrophils # 9.8 H (1.3-7.7) k/uL Lymphocytes # 0.4 L (1.0-4.8) k/uL Sodium 136 L (137-145) mmol/L Potassium 3.4 L (3.5-5.1) mmol/L BUN 60 H (7-17) mg/dL Creatinine 1.64 H (0.52-1.04) mg/dL Glucose 117 H (74-99) mg/dL Calcium 8.3 L (8.4-10.2) mg/dL AST 52 H (14-36) U/L Total Protein 5.6 L (6.3-8.2) g/dL Albumin 2.9 L (3.5-5.0) g/dL
[2023-11-03] MEDS: IPRATROPIUM 0.5 MG/2.5 ML NEBU INHALATION STA (14:53)
[2023-11-03] MEDS: IPRATROPIUM-ALBUTEROL 3 ML NEB INHALATION SCH (15:21)
[2023-11-03] MEDS: SODIUM CHLORIDE 0.9% 1,000 ML IV SCH (17:14)
--- NOTE | 2023-11-04 04:56 | P.CNPUL ---
History of Present Illness Consult date: 11/04/23 Requesting physician: Jj Gaxiola Reason for consult: COPD, pneumonia Chief complaint: Shortness of breath, cough History of present illness: Patient is an 88-year-old female with past medical history significant for hypertension, hyperlipidemia, former tobacco smoker, and COPD. Patient is very hard of hearing. Her hearing aids have , and it is difficult to communicate. It appears that she has been suffering from shortness of breath progressively worsening over the last 2 weeks. This is associated with a persistent congested cough with clear sputum. Denies sick contacts. Denies fevers or chills. Denies chest pain. Denies hemoptysis. Patient finally came to the emergency room yesterday morning. Chest x-ray shows a subtle airspace opacity of the right lower lobe, possibly developing pneumonia. CBC on arrival: WBC count 11.2, hemoglobin 9.1, hematocrit 31, platelets 219. BMP on arrival: Sodium 136, potassium 3.4, chloride 102, serum bicarb 23, BUN 60, creatinine 1.64, glucose 117. Normal saline is infusing at 75 mL/h. Lactic acid level not elevated. Troponin less than 0.12. D-dimer was elevated at 1.53. More likely alternative diagnosis of pneumonia than pulmonary embolism. Nontachycardic. Blood pressure normotensive. No personal or family history of thromboembolism. No recent trauma, surgery, or prolonged travel. Viral panel negative for influe nza, RSV, COVID. Started on combination of empiric antibiotics for community- acquired pneumonia including azithromycin and Rocephin. Afebrile. Currently sitting up in bed, on 3 L/min nasal cannula, in no acute distress. Does not wear home O2. Hemodynamically stable. Review of Systems REVIEW OF SYSTEMS: CONSTITUTIONAL: Denies any recent significant weight loss or weight gain. EYES: Denies change in vision. EARS, NOSE, MOUTH, THROAT: Denies headaches, denies sore throat. CARDIOVASCULAR: Denies chest pain, palpitations or syncopal episodes. RESPIRATORY: See HPI GASTROINTESTINAL: Denies abdominal pain, nausea and vomiting, or diarrhea. Admits reduced appetite. Denies alvin blood loss in stool or melena. Denies hematemesis. GENITOURINARY: Denies hematuria, denies infections. MUSKULOSKELETAL: Denies pain, denies swelling. INTEGUMENTARY: Denies rash, denies eczema. NEUROLOGICAL: Denies recent memory loss, no recent seizure activity. PSYCHIATRIC: Denies anxiety, denies depression. HEMATOLOGIC/LYMPHATIC: Denies anemia, denies enlarged lymph node Past Medical History Past Medical History: Hypertension History of Any Multi-Drug Resistant Organisms: None Reported Past Surgical History: Breast Surgery Past Anesthesia/Blood Transfusion Reactions: No Reported Reaction Past Psychological History: No Psychological Hx Reported Smoking Status: Former smoker Past Alcohol Use History: None Reported Past Drug Use History: None Reported Medications and Allergies Home Medications Medication Instructions Recorded Confirmed Type Alendronate Sodium [Fosamax] 70 mg PO BUI 08/22/19 11/03/23 History Atorvastatin [Lipitor] 80 mg PO DAILY 08/22/19 11/03/23 History Metoprolol Succinate [Toprol XL] 25 mg PO DAILY 08/22/19 11/03/23 History Albuterol Sulfate [Albuterol 2 puff PO RT-Q6H PRN 11/03/23 11/03/23 History Sulfate Hfa] Ipratropium-Albuterol Nebulize 3 ml INHALATION RT-QID 11/03/23 11/03/23 History [Duoneb 0.5 mg-3 mg/3 ml Soln] Losartan/Hydrochlorothiazide 1 tab PO DAILY 11/03/23 11/03/23 History [Hyzaar 100-12.5 Tablet] Allergies Allergy/AdvReac Type Severity Reaction Status Date / Time No Known Allergies Allergy Verified 11/03/23 11:24 Physical Exam Vitals: Vital Signs Temp Pulse Pulse Resp BP BP Pulse Ox 11/04/23 01:40 97.4 F L 71 17 118/58 95 11/03/23 22:45 18 11/03/23 21:37 97.6 F 73 14 108/59 92 L 11/03/23 21:25 72 11/03/23 21:14 67 11/03/23 20:13 70 18 107/60 92 L 11/03/23 17:00 70 20 106/59 91 L 11/03/23 16:00 72 21 98/54 90 L 11/03/23 15:31 68 11/03/23 15:21 69 11/03/23 15:00 73 19 99/44 93 L 11/03/23 14:00 75 14 91/50 94 L 11/03/23 13:17 74 18 91/50 94 L 11/03/23 12:40 76 11/03/23 12:24 71 11/03/23 12:02 74 101/53 98 11/03/23 10:33 98.9 F 83 22 112/55 86 L 11/03/23 10:30 24 11/03/23 10:20 98.3 F 94 20 107/65 76 L Intake and Output 11/03/23 11/03/23 11/04/23 14:59 22:59 06:59 Other: Weight 44.906 kg 44.906 kg GENERAL EXAM: Alert, 88-year-old white female, comfortable in no apparent distress. Very hard of hearing. HEAD: Normocephalic and atraumatic EYES: Normal reaction of pupils, equal size. NOSE: Clear with pink turbinates. THROAT: No erythema or exudates. Dry mucous membranes NECK: No masses, no JVD. CHEST: No chest wall deformity. LUNGS: Equal air entry with no crackles, wheeze, rhonchi or dullness. On 3 L/min nasal cannula. No conversational dyspnea or accessory muscle use.. CVS: S1 and S2 normal with no audible murmur, regular rhythm. No extra heart sounds ABDOMEN: No hepatosplenomegaly, active bowel sounds, no guarding or rigidity. SPINE: No scoliosis or deformity SKIN: No rashes CENTRAL NERVOUS SYSTEM: No focal deficits, tone is normal in all 4 extremities. EXTREMITIES: There is no peripheral edema, clubbing, or cyanosis. Peripheral pulses are intact. Results - Laboratory Findings CBC and BMP: 11/03/23 13:05 11/03/23 13:05 PT/INR, D-dimer PT 11.1 sec (10.0-12.5) 11/03/23 12:00 INR 1.0 (<1.2) 11/03/23 12:00 D-Dimer 1.53 mg/L FEU (<0.60) H 11/03/23 12:00 Abnormal lab findings: Abnormal Labs 11/03/23 11/03/23 11/03/23 12:00 13:05 13:05 WBC 11.2 H Hgb 9.1 L Hct 31.0 L MCV 76.8 L MCH 22.6 L MCHC 29.5 L RDW 16.4 H Neutrophils # 9.8 H Lymphocytes # 0.4 L D-Dimer 1.53 H Sodium 136 L Potassium 3.4 L BUN 60 H Creatinine 1.64 H Glucose 117 H Calcium 8.3 L AST 52 H Total Protein 5.6 L Albumin 2.9 L - Diagnostic Findings Chest x-ray: image reviewed Assessment and Plan Assessment: Suspected right lower lobe community-acquired pneumonia. Chest x-ray shows a subtle airspace opacity of the right lower lobe, possibly developing pneumonia. Negative for influenza, RSV, COVID. Possible mild exacerbation of chronic obstructive pulmonary disease, secondary to above Acute hypoxemic respiratory failure, secondary to above Former tobacco dependence, quit smoking 3 years ago Microcytic hypochromic anemia, no overt signs of acute blood loss Elevated D-dimer, clinical suspicion for PE is low Severe dehydration and reduced oral intake Acute kidney injury, possibly secondary to above, creatinine 1.64 History of hypertension History of hyperlipidemia Hard of hearing Plan: Patient's medications, labs, chest x-ray reviewed Continue supplemental oxygen, wean FiO2 as tolerated Continue as needed DuoNebs. Continue IV Solu-Medrol for now. Continue empiric antibiotics for community-acquired pneumonia. Blood cultures pending. Continue IV maintenance fluids. Hold nephrotoxic agents and TAMI inhibitor. Lovenox for DVT prophylaxis and Protonix for GI prophylaxis We will continue to follow I have personally seen and examined the patient, performed the documentation and the assessment and plan as written. Number of minutes spent on the visit:20 Time with Patient: Greater than 30
[2023-11-04 05:55] LABS: Glucose,Whole Blood 126 mg/dL (70-110)
[2023-11-04] MEDS: PANTOPRAZOLE 40 MG TABLET PO SCH (06:18)
[2023-11-04 06:23] LABS: Anisocytosis Slight; HCT 30.1 % (34.0-46.0); HGB 8.9 gm/dL (11.4-16.0); Hypochromasia Marked; MCH 23.1 pg (25.0-35.0); MCHC 29.5 g/dL (31.0-37.0); MCV 78.6 fL (80.0-100.0); Mean Platelet Volume 9.6; Microcytosis Slight; Platelet Count 203 k/uL (150-450); Poikilocytosis Slight; RBC 3.83 m/uL (3.80-5.40); RDW 16.5 % (11.5-15.5); WBC 9.5 k/uL (3.8-10.6)
--- NOTE | 2023-11-04 07:29 | XR ---
EXAMINATION TYPE: XR chest 2V DATE OF EXAM: 11/04/2023 COMPARISON: 11/03/2023 HISTORY: Shortness of breath TECHNIQUE: Frontal and lateral views of the chest are obtained. FINDINGS: Scattered senescent parenchymal changes noted. Hyperinflation compatible with COPD. Scattered pleural-parenchymal opacities are unchanged bilaterally. Heart size is stable. Mediastinal structures are stable and grossly unremarkable. No evidence for hilar prominence. Degenerative changes dorsal spine. IMPRESSION: 1. Stable chest
[2023-11-04] MEDS: AZITHROMYCIN 500 MG TAB PO SCH (08:42)
[2023-11-04] MEDS: ENOXAPARIN 40 MG/0.4 ML SYRINGE SQ SCH (08:42)
[2023-11-04 09:10] LABS: % Iron Saturation 3.61 (12.00-45.00); BUN/Creat Ratio 40.29 Ratio (12.00-20.00); Blood Urea Nitrogen 68.5 mg/dL (9.0-27.0); Calcium 8.5 mg/dL (8.7-10.3); Carbon Dioxide 22.9 mmol/L (21.6-31.8); Chloride 103 mmol/L (96-109); Glucose 134 mg/dL (70-110); Iron 10 UG/DL (50-170); Potassium 3.3 mmol/L (3.5-5.5); Sodium 140 mmol/L (135-145); Total Iron Binding Capacity 277 UG/DL (228-460)
[2023-11-04] MEDS: POTASSIUM CHLORIDE ER 20 MEQ TAB.ER PO STA (10:34)
[2023-11-04 11:43] VITALS: BMI 16.9
[2023-11-04 13:08] LABS: Appearance,Urine Cloudy (Clear); Bacteria,Urine Rare /hpf; Bilirubin,Urine Negative (Negative); Blood,Urine Small (Negative); Color,Urine Light Yellow; Glucose,Urine (UA) Negative (Negative); Hyaline Casts,Urine 14 /lpf (0-2); Ketones,Urine Negative (Negative); Leukocyte Esterase,Urine Moderate (Negative); Mucus,Urine Rare /hpf; Nitrite,Urine Negative (Negative); PH, Urine 5.5 (5.0-8.0); Protein,Urine 1+ (Negative); RBC,Urine 3 /hpf (0-5); Specific Gravity,Urine 1.015 (1.001-1.035); Squamous Epithelial Cell,Urine 1 /hpf (0-4); Urobilinogen,Urine <2.0 mg/dL (<2.0); WBC,Urine 66 /hpf (0-5)
--- NOTE | 2023-11-04 13:39 | P.PN ---
Subjective Progress Note Date: 11/04/23 88 year old F with PMH of COPD, 60 PPD smoker, hypertension, dyslipidemia presents to the ED. Daughter is at bedside contributing to the history. She reports patient has been mostly sleeping since Thursday. She attended a on which may have been too stimulating. Recently obtained a nebulizer machine and has been doing treatments at home. Daughter reports a wet cough and 10 pound subjective weight loss over the past 2 weeks. She reports a poor appetite. In the ED, she underwent extensive evaluation. BP 107/65, HR 94, RR 20, T 98.3F, 76% on RA. CBC, Coag panel panel done significant for WBC 11.2, Hg 9.1, Hct 31, MCV 76.8. VBG pH 7.4, pCO2 42. COVID, Flu, RSV negative. CXR showed possible RLL PNA. Patient is admitted for further management. Started on Rocephin and Azithromycin for treatment for PNA. Pulmonary consulted, started on bronchodilators and SoluMedrol. Blood culture came back + for E. coli and gram positive bacteria. 11/03 Patient was seen and examined. Mentation improved. Daughter at bedside. Patient denies any dysuria or abdominal pain. Currently 91% on 3L NC. CBC shows Hg 8.9, Hct 30.1, MCV 78.6. BMP K 3.3, AG 14.1, BUN 68.5, Cr 1.7, glu 134, Ca 8.5. Iron 10, % sat 3.61. Procal 2. D-Dimer 1.53. UA shows moderate LE with 66 WBCs. BCx + E. coli and gram positive. CXR done today shows stable chest infiltrates. General: non toxic, no distress, appears at stated age Derm: warm, dry Head: atraumatic, normocephalic, symmetric Eyes: EOMI, no lid lag, pale sclera Mouth: no lip lesion, mucus membranes moist Cardiovascular: S1S2 reg, no murmur Lungs: Decreased bilateral, no rhonchi, no rales , no accessory muscle use Ext: no gross muscle atrophy, no edema, no contractures Neuro: no focal neuro deficits Psych: Alert, oriented, appropriate affect Based on my assessment of this patient, this patient meets a high complexity level of care. Patient has an acute diagnosis of acute hypoxic respiratory failure due to COPD exacerbation and PNA that poses a threat to life or bodily function. Acute hypoxic respiratory failure: Currently on 6L NC. Likely related to PNA. Elevated D-Dimer: Obtain V/Q scan. Sepsis due to community acquired pneumonia: Patient meets sepsis criteria with leukocytosis, tachycardia, infiltrate on CXR. Rocephin 2g IV QD and Azithromycin 500 mg PO QD. Telemetry monitoring. NS at 75 cc/hr. Sputum and blood cultures. Legionella Ag. Pulmonary consult. E. coli and gram + bacteremia: Likely source urine. Continue Rocephin as above. Repeat BCx tomorrow. COPD exacerbation: DuoNeb QID scheduled and Q2H PRN for SOB/wheezing. SoluMedrol 60 mg IV Q8H. Microcytic anemia: Iron studies indicating iron deficiency anemia. Hg 11.1 in 2019. Transfuse if Hg < 7. Hypertension: Now hypotensive. Hold Lisinopril, HCTZ and Metoprolol. Dyslipidemia: Lipitor 80 mg PO QD. CODE STATUS: FULL CODE. DVT Prophylaxis: Lovenox GI Prophylaxis: Protonix Designated medical POA if patient is not able to make medical decisions for themselves: Daughter I have reviewed the following employee relations consultant notes: Pulmonary. I have reviewed the results of the following tests: CBC, BMP, Iron studies, Procal, D-Dimer, UA, BCx. I have ordered the following tests: As above I have discussed the care of this patient with the following independent historian: Daughter I have independently interpreted the following test below: CXR I have discussed the management of this patient with the following physician: Objective - Vital Signs Vital signs: Vital Signs Temp 97.4 F L 11/04/23 07:17 Pulse 78 11/04/23 13:23 Resp 16 11/04/23 08:51 BP 113/62 11/04/23 07:17 Pulse Ox 94 L 11/04/23 08:41 FiO2 Intake & Output 11/03/23 11/04/23 11/04/23 18:59 06:59 18:59 Weight 44.906 kg 44.906 kg 44.906 kg Other: # Voids 1 - Labs CBC & Chem 7: 11/04/23 05:50 11/04/23 05:50 Labs: Abnormal Lab Results - Last 24 Hours (Table) 04/23/24 04/23/24 04/23/24 Range/Units 12:00 13:05 13:05 WBC 11.2 H (3.8-10.6) k/uL Hgb 9.1 L (11.4-16.0) gm/dL Hct 31.0 L (34.0-46.0) % MCV 76.8 L (80.0-100.0) fL MCH 22.6 L (25.0-35.0) pg MCHC 29.5 L (31.0-37.0) g/dL RDW 16.4 H (11.5-15.5) % Neutrophils # 9.8 H (1.3-7.7) k/uL Lymphocytes # 0.4 L (1.0-4.8) k/uL D-Dimer 1.53 H (<0.60) mg/L FEU Sodium 136 L (137-145) mmol/L Potassium 3.4 L (3.5-5.1) mmol/L Anion Gap (4.00-12.00) mmol/L BUN 60 H (7-17) mg/dL Creatinine 1.64 H (0.52-1.04) mg/dL Est GFR (CKD-EPI) (>=60) BUN/Creatinine Ratio (12.00-20.00) Ratio Glucose 117 H (74-99) mg/dL POC Glucose (mg/dL) (70-110) mg/dL Calcium 8.3 L (8.4-10.2) mg/dL Iron (50-170) UG/DL % Saturation (12.00-45.00) Transferrin (204.0-354.0) mg/dL AST 52 H (14-36) U/L Total Protein 5.6 L (6.3-8.2) g/dL Albumin 2.9 L (3.5-5.0) g/dL Procalcitonin (0.02-0.09) ng/mL Urine Appearance (Clear) Urine Protein (Negative) Urine Blood (Negative) Ur Leukocyte Esterase (Negative) Urine WBC (0-5) /hpf Urine WBC Clumps (None) /hpf Urine Bacteria (None) /hpf Hyaline Casts (0-2) /lpf Urine Mucus (None) /hpf 11/04/23 11/04/23 11/04/23 Range/Units 05:50 05:50 05:50 WBC (3.8-10.6) k/uL Hgb 8.9 L (11.4-16.0) gm/dL Hct 30.1 L (34.0-46.0) % MCV 78.6 L (80.0-100.0) fL MCH 23.1 L (25.0-35.0) pg MCHC 29.5 L (31.0-37.0) g/dL RDW 16.5 H (11.5-15.5) % Neutrophils # (1.3-7.7) k/uL Lymphocytes # (1.0-4.8) k/uL D-Dimer (<0.60) mg/L FEU Sodium (137-145) mmol/L Potassium 3.3 L (3.5-5.1) mmol/L Anion Gap 14.10 H (4.00-12.00) mmol/L BUN 68.5 H (7-17) mg/dL Creatinine 1.7 H (0.52-1.04) mg/dL Est GFR (CKD-EPI) 29 L (>=60) BUN/Creatinine Ratio 40.29 H (12.00-20.00) Ratio Glucose 134 H (74-99) mg/dL POC Glucose (mg/dL) (70-110) mg/dL Calcium 8.5 L (8.4-10.2) mg/dL Iron 10 L (50-170) UG/DL % Saturation 3.61 L (12.00-45.00) Transferrin 198.0 L (204.0-354.0) mg/dL AST (14-36) U/L Total Protein (6.3-8.2) g/dL Albumin (3.5-5.0) g/dL Procalcitonin 2.00 H (0.02-0.09) ng/mL Urine Appearance (Clear) Urine Protein (Negative) Urine Blood (Negative) Ur Leukocyte Esterase (Negative) Urine WBC (0-5) /hpf Urine WBC Clumps (None) /hpf Urine Bacteria (None) /hpf Hyaline Casts (0-2) /lpf Urine Mucus (None) /hpf 11/04/23 11/04/23 Range/Units 05:53 12:50 WBC (3.8-10.6) k/uL Hgb (11.4-16.0) gm/dL Hct (34.0-46.0) % MCV (80.0-100.0) fL MCH (25.0-35.0) pg MCHC (31.0-37.0) g/dL RDW (11.5-15.5) % Neutrophils # (1.3-7.7) k/uL Lymphocytes # (1.0-4.8) k/uL D-Dimer (<0.60) mg/L FEU Sodium (137-145) mmol/L Potassium (3.5-5.1) mmol/L Anion Gap (4.00-12.00) mmol/L BUN (7-17) mg/dL Creatinine (0.52-1.04) mg/dL Est GFR (CKD-EPI) (>=60) BUN/Creatinine Ratio (12.00-20.00) Ratio Glucose (74-99) mg/dL POC Glucose (mg/dL) 126 H (70-110) mg/dL Calcium (8.4-10.2) mg/dL Iron (50-170) UG/DL % Saturation (12.00-45.00) Transferrin (204.0-354.0) mg/dL AST (14-36) U/L Total Protein (6.3-8.2) g/dL Albumin (3.5-5.0) g/dL Procalcitonin (0.02-0.09) ng/mL Urine Appearance Cloudy H (Clear) Urine Protein 1+ H (Negative) Urine Blood Small H (Negative) Ur Leukocyte Esterase Moderate H (Negative) Urine WBC 66 H (0-5) /hpf Urine WBC Clumps Few H (None) /hpf Urine Bacteria Rare H (None) /hpf Hyaline Casts 14 H (0-2) /lpf Urine Mucus Rare H (None) /hpf Microbiology - Last 24 Hours (Table) 11/03/23 12:57 Blood Culture Gram Stain - Preliminary Blood Blood Culture - Preliminary Molecular ID 11/03/23 11:45 Blood Culture Gram Stain - Preliminary Blood
--- NOTE | 2023-11-04 17:12 | NM ---
EXAMINATION TYPE: NM pul vent and perfuse DATE OF EXAM: 11/04/2023 CLINICAL INDICATION: Female, 88 years old with history of r/o PE; COMPARISON: NONE TECHNIQUE: Utilizing inhalation of 65.3 mCi Tc 99m DTPA aerosol and intravenous injection of 4.91 mC i of Tc 99m MAA, ventilation and perfusion images are acquired post injection in multiple projections . FINDINGS: Matched defect right upper lobe. Matched defect right mid lung zone at its periphery. No perfusion ve ntilation mismatches are present. IMPRESSION: Intermediate probability for pulmonary embolism.
[2023-11-04] MEDS ORDERED: CALCIUM CARBONATE 500 MG CHEWABLE PO PRN (18:10)
[2023-11-05 06:24] LABS: Anisocytosis Slight; HCT 30.5 % (34.0-46.0); HGB 8.8 gm/dL (11.4-16.0); Hypochromasia Marked; MCH 22.7 pg (25.0-35.0); MCV 78.4 fL (80.0-100.0); Mean Platelet Volume 9.6; Microcytosis Slight; Platelet Count 201 k/uL (150-450); Poikilocytosis Slight; RBC 3.89 m/uL (3.80-5.40); RDW 16.5 % (11.5-15.5); WBC 12.4 k/uL (3.8-10.6)
[2023-11-05 06:56] LABS: African American GFR (CKD) 47 (>60 ml/min/1.73 sqM); Anion Gap 8 mmol/L; Blood Urea Nitrogen 66 mg/dL (7-17); Calcium 10.3 mg/dL (8.4-10.2); Carbon Dioxide 25 mmol/L (22-30); Chloride 105 mmol/L (98-107); Glucose 136 mg/dL (74-99); Magnesium 2.6 mg/dL (1.6-2.3); Non-African American GFR(CKD) 41 (>60 ml/min/1.73 sqM); Potassium 3.7 mmol/L (3.5-5.1); Sodium 138 mmol/L (137-145)
[2023-11-05] MEDS ORDERED: ENOXAPARIN 30 MG/0.3 ML SYRINGE SQ SCH (09:00)
[2023-11-05] MEDS: Apixaban Initiation Dose--VTE 5 MG TAB PO SCH (09:22)
--- NOTE | 2023-11-05 12:09 | P.PN ---
Subjective Progress Note Date: 11/05/23 88 year old F with PMH of COPD, 60 PPD smoker, hypertension, dyslipidemia presents to the ED. Daughter is at bedside contributing to the history. She reports patient has been mostly sleeping since Thursday. She attended a on which may have been too stimulating. Recently obtained a nebulizer machine and has been doing treatments at home. Daughter reports a wet cough and 10 pound subjective weight loss over the past 2 weeks. She reports a poor appetite. In the ED, she underwent extensive evaluation. BP 107/65, HR 94, RR 20, T 98.3F, 76% on RA. CBC, Coag panel panel done significant for WBC 11.2, Hg 9.1, Hct 31, MCV 76.8. VBG pH 7.4, pCO2 42. COVID, Flu, RSV negative. CXR showed possible RLL PNA. Patient is admitted for further management. Started on Rocephin and Azithromycin for treatment for PNA. Pulmonary consulted, started on bronchodilators and SoluMedrol. Blood culture came back + for E. coli and gram positive bacteria. 11/03 Patient was seen and examined. Mentation improved. Daughter at bedside. Patient denies any dysuria or abdominal pain. Currently 91% on 3L NC. CBC shows Hg 8.9, Hct 30.1, MCV 78.6. BMP K 3.3, AG 14.1, BUN 68.5, Cr 1.7, glu 134, Ca 8.5. Iron 10, % sat 3.61. Procal 2. D-Dimer 1.53. UA shows moderate LE with 66 WBCs. BCx + E. coli and gram positive. CXR done today shows stable chest infiltrates. 11/04 Patient was seen and examined. Doing well. No complaints. V/Q scan shows intermediate probability of PE, started on Eliquis. CBC WBC 12.4, Hg 8.8 Hct 30.5, MCV 78.4. BMP BUN 66, Cr 1.19, glu 136, Ca 10.3. Mag 2.6. General: non toxic, no distress, appears at stated age Derm: warm, dry Head: atraumatic, normocephalic, symmetric Eyes: EOMI, no lid lag, pale sclera Mouth: no lip lesion, mucus membranes moist Cardiovascular: S1S2 reg, no murmur Lungs: Decreased bilateral, no rhonchi, no rales , no accessory muscle use Ext: no gross muscle atrophy, no edema, no contractures Neuro: no focal neuro deficits Psych: Alert, oriented, appropriate affect Based on my assessment of this patient, this patient meets a high complexity level of care. Patient has an acute diagnosis of acute hypoxic respiratory failure due to COPD exacerbation and PNA that poses a threat to life or bodily function. Acute hypoxic respiratory failure: Currently on 6L NC. Likely related to PNA. Elevated D-Dimer: V/Q scan intermediate probability of PE. Start Eliquis 10 mg PO BID. Sepsis due to community acquired pneumonia: Patient meets sepsis criteria with leukocytosis, tachycardia, infiltrate on CXR. Rocephin 2g IV QD. Completed 3 days of Azithromycin 500 mg. Telemetry monitoring. NS at 75 cc/hr. Sputum and blood cultures. Legionella Ag negative. Pulmonary on board. E. coli and gram + bacteremia: Likely source urine. Continue Rocephin as above. Repeat BCx tomorrow. ID consulted. COPD exacerbation: DuoNeb QID scheduled and Q2H PRN for SOB/wheezing. SoluMedrol switched to Prednisone 30 mg PO QD. Microcytic anemia: Iron studies indicating iron deficiency anemia. Hg 11.1 in 2019. Transfuse if Hg < 7. Hypertension: Hold Lisinopril, HCTZ. Restart Metoprolol 25 mg PO QD. Dyslipidemia: Lipitor 80 mg PO QD. CODE STATUS: FULL CODE. DVT Prophylaxis: Lovenox GI Prophylaxis: Protonix Designated medical POA if patient is not able to make medical decisions for themselves: Daughter I have reviewed the following quality improvement consultant notes: Pulmonary. I have reviewed the results of the following tests: CBC, BMP, V/Q scan I have ordered the following tests: I have discussed the care of this patient with the following independent historian: I have independently interpreted the following test below: I have discussed the management of this patient with the following physician: Objective - Vital Signs Vital signs: Vital Signs Temp 98.1 F 11/05/23 07:36 Pulse 90 11/05/23 10:11 Resp 16 11/05/23 07:36 BP 166/79 11/05/23 07:36 Pulse Ox 90 L 11/05/23 09:56 FiO2 Intake & Output 11/04/23 11/05/23 11/05/23 18:59 06:59 18:59 Weight 44.906 kg Other: # Voids 3 3 - Labs CBC & Chem 7: 11/05/23 05:45 11/05/23 05:45 Labs: Abnormal Lab Results - Last 24 Hours (Table) 11/04/23 11/05/23 11/05/23 Range/Units 12:50 05:45 05:45 WBC 12.4 H (3.8-10.6) k/uL Hgb 8.8 L (11.4-16.0) gm/dL Hct 30.5 L (34.0-46.0) % MCV 78.4 L (80.0-100.0) fL MCH 22.7 L (25.0-35.0) pg MCHC 29.0 L (31.0-37.0) g/dL RDW 16.5 H (11.5-15.5) % BUN 66 H (7-17) mg/dL Creatinine 1.19 H (0.52-1.04) mg/dL Glucose 136 H (74-99) mg/dL Calcium 10.3 H (8.4-10.2) mg/dL Magnesium 2.6 H (1.6-2.3) mg/dL Urine Appearance Cloudy H (Clear) Urine Protein 1+ H (Negative) Urine Blood Small H (Negative) Ur Leukocyte Esterase Moderate H (Negative) Urine WBC 66 H (0-5) /hpf Urine WBC Clumps Few H (None) /hpf Urine Bacteria Rare H (None) /hpf Hyaline Casts 14 H (0-2) /lpf Urine Mucus Rare H (None) /hpf Microbiology - Last 24 Hours (Table) 11/03/23 11:45 Blood Culture Gram Stain - Preliminary Blood Blood Culture - Preliminary Gram Neg Bacilli 11/03/23 12:57 Blood Culture Gram Stain - Preliminary Blood Blood Culture - Preliminary Gram Neg Bacilli Molecular ID
--- NOTE | 2023-11-05 14:46 | P.PN ---
Subjective Progress Note Date: 11/05/23 Patient is an 88-year-old female with past medical history significant for hypertension, hyperlipidemia, former tobacco smoker, and COPD. Patient is very hard of hearing. Her hearing aids have , and it is difficult to communicate. It appears that she has been suffering from shortness of breath progressively worsening over the last 2 weeks. This is associated with a persistent congested cough with clear sputum. Denies sick contacts. Denies fevers or chills. Denies chest pain. Denies hemoptysis. Patient finally came to the emergency room yesterday morning. Chest x-ray shows a subtle airspace opacity of the right lower lobe, possibly developing pneumonia. CBC on arrival: WBC count 11.2, hemoglobin 9.1, hematocrit 31, platelets 219. BMP on arrival: Sodium 136, potassium 3.4, chloride 102, serum bicarb 23, BUN 60, creatinine 1.64, glucose 117. Normal saline is infusing at 75 mL/h. Lactic acid level not elevated. Troponin less than 0.12. D-dimer was elevated at 1.53. More likely alternative diagnosis of pneumonia than pulmonary embolism. Nontachycardic. Blood pressure normotensive. No personal or family history of thromboembolism. No recent trauma, surgery, or prolonged travel. Viral panel negative for influenza, RSV, COVID. Started on combination of empiric antibiotics for community-acquired pneumonia including azithromycin and Rocephin. Afebrile. Currently sitting up in bed, on 3 L/min nasal cannula, in no acute distress. Does not wear home O2. Hemodynamically stable. The patient is seen today November 05, 2023 in follow-up on the regular medical floor. She is currently resting comfortably in bed. Awake and alert in no acute distress. She is maintaining good O2 saturations in the 90s on 3 L/min per nasal cannula. Normal saline at 20 MLS per hour. Her blood cultures are positive for gram-negative bacilli. Chest x-ray showed evidence of COPD with scattered pleural-parenchymal opacities bilaterally. Ventilation/perfusion scan revealed matched defect of the right upper lobe. Matched defect in the right middle lobe. No perfusion ventilation mismatch is are present.. White count 12.4. Hemoglobin 8.8. Platelets 201. Sodium 138. Potassium 3.7. Bicarb 25. BUN 66. Creatinine 1.19. Glucose 136. She is currently on ceftriaxone. Remains on bronchodilators and Solu-Medrol. Objective - Vital Signs Vital signs: Vital Signs Temp 98.7 F 11/05/23 14:00 Pulse 86 11/05/23 14:00 Resp 16 11/05/23 14:00 BP 124/57 11/05/23 14:00 Pulse Ox 92 L 11/05/23 14:00 FiO2 Intake & Output 11/04/23 11/05/23 11/05/23 18:59 06:59 18:59 Weight 44.906 kg Other: # Voids 3 3 - Exam GENERAL EXAM: Alert, pleasant 88-year-old female, on 2 L nasal cannula, comfortable in no apparent distress. Very hard of hearing. HEAD: Normocephalic and atraumatic EYES: Normal reaction of pupils, equal size. NOSE: Clear with pink turbinates. THROAT: No erythema or exudates. Dry mucous membranes NECK: No masses, no JVD. CHEST: No chest wall deformity. LUNGS: Equal air entry with no crackles, wheeze, rhonchi or dullness. No conversational dyspnea or accessory muscle use.. CVS: S1 and S2 normal with no audible murmur, regular rhythm. No extra heart sounds ABDOMEN: No hepatosplenomegaly, active bowel sounds, no guarding or rigidity. SPINE: No scoliosis or deformity SKIN: No rashes CENTRAL NERVOUS SYSTEM: No focal deficits, tone is normal in all 4 extremities. EXTREMITIES: There is no peripheral edema, clubbing, or cyanosis. Peripheral pulses are intact. - Labs CBC & Chem 7: 11/05/23 05:45 11/05/23 05:45 Labs: Abnormal Lab Results - Last 24 Hours (Table) 11/05/23 11/05/23 Range/Units 05:45 05:45 WBC 12.4 H (3.8-10.6) k/uL Hgb 8.8 L (11.4-16.0) gm/dL Hct 30.5 L (34.0-46.0) % MCV 78.4 L (80.0-100.0) fL MCH 22.7 L (25.0-35.0) pg MCHC 29.0 L (31.0-37.0) g/dL RDW 16.5 H (11.5-15.5) % BUN 66 H (7-17) mg/dL Creatinine 1.19 H (0.52-1.04) mg/dL Glucose 136 H (74-99) mg/dL Calcium 10.3 H (8.4-10.2) mg/dL Magnesium 2.6 H (1.6-2.3) mg/dL Microbiology - Last 24 Hours (Table) 11/03/23 11:45 Blood Culture Gram Stain - Preliminary Blood Blood Culture - Preliminary Gram Neg Bacilli 11/03/23 12:57 Blood Culture Gram Stain - Preliminary Blood Blood Culture - Preliminary Gram Neg Bacilli Molecular ID Assessment and Plan Assessment: Suspected right lower lobe community-acquired pneumonia. Chest x-ray shows a subtle airspace opacity of the right lower lobe, possibly developing pneumonia. Negative for influenza, RSV, COVID. Possible mild exacerbation of chronic obstructive pulmonary disease, secondary to above Acute hypoxemic respiratory failure, secondary to above Bacteremia secondary to gram-negative bacilli Former tobacco dependence, quit smoking 3 years ago Microcytic hypochromic anemia, no overt signs of acute blood loss Elevated D-dimer, clinical suspicion for PE is low. Ventilation/perfusion scan showed matched defects in the right upper and mid lobes. Severe dehydration and reduced oral intake Acute kidney injury, possibly secondary to above, creatinine 1.64 History of hypertension History of hyperlipidemia Hard of hearing Plan: The patient was seen and evaluated Chest x-ray, VQ scan, labs and medications reviewed Doubt pulmonary embolism, matched defects noted Will order Doppler of the lower extremities Remains on ceftriaxone Discontinue IV Solu-Medrol Initiate prednisone taper Continue bronchodilators Titrate the FiO2 as tolerated We will continue to follow I have personally seen and examined the patient, performed the documentation and the assessment and plan as written. Number of minutes spent on the visit: 10.
--- NOTE | 2023-11-05 22:43 | P.CONS ---
History of Present Illness - Reason for Consult Consult date: 11/05/23 E. coli bacteremia Requesting physician: Jj Gaxiola - Chief Complaint Weakness increasing shortness of breath x few days - History of Present Illness Patient is a 88-year-old female with a past medical history significant for hypertension presenting to the hospital 2 days ago for evaluation of cough and increasing shortness of breath and this patient symptom has been getting worse for 2 days before presentation to the hospital patient denies high-grade fever or any chills no headache or URI symptoms denies having any chest pain has been complaining of shortness of breath and did have a cough mild to moderate intensity not bring up any sputum patient denies having any nausea no vomiting no abdominal pain no diarrhea and no significant urinary sym ptoms patient on presentation to the hospital was afebrile and no fever have been tried subsequently patient was not tachycardic or hypotensive mildly hypoxic currently on 3 L nasal cannula oxygen patient did have a white count of 11.2 then normalized but slightly up to 12.4 today BUN and creatinine has been mildly elevated but improving urine has been positive influenza RSV COVID testing was negative patient did have a chest x-ray airspace opacity of the right lower lobe mildly present and developing pneumonia patient has been treated with the Rocephin and Zithromax along with steroids blood cultures come back positive with gram-negative bacilli prompting this consultation Review of Systems Positive point and negatives has been mentioned in the HPI, complete review of systems was performed and all other systems are negative Past Medical History Past Medical History: Hypertension History of Any Multi-Drug Resistant Organisms: None Reported Past Surgical History: Breast Surgery Past Anesthesia/Blood Transfusion Reactions: No Reported Reaction Past Psychological History: No Psychological Hx Reported Smoking Status: Former smoker Past Alcohol Use History: None Reported Past Drug Use History: None Reported Medications and Allergies Home Medications Medication Instructions Recorded Confirmed Type Alendronate Sodium [Fosamax] 70 mg PO BUI 08/22/19 11/03/23 History Atorvastatin [Lipitor] 80 mg PO DAILY 08/22/19 11/03/23 History Metoprolol Succinate [Toprol XL] 25 mg PO DAILY 08/22/19 11/03/23 History Albuterol Sulfate [Albuterol 2 puff PO RT-Q6H PRN 11/03/23 11/03/23 History Sulfate Hfa] Ipratropium-Albuterol Nebulize 3 ml INHALATION RT-QID 11/03/23 11/03/23 History [Duoneb 0.5 mg-3 mg/3 ml Soln] Losartan/Hydrochlorothiazide 1 tab PO DAILY 11/03/23 11/03/23 History [Hyzaar 100-12.5 Tablet] Allergies Allergy/AdvReac Type Severity Reaction Status Date / Time No Known Allergies Allergy Verified 11/03/23 11:24 Physical Exam Vitals: Vital Signs Temp Pulse Pulse Resp BP Pulse Ox 11/05/23 14:00 98.7 F 86 16 124/57 92 L 11/05/23 13:14 89 11/05/23 13:03 92 11/05/23 10:11 90 11/05/23 09:56 88 90 L 11/05/23 07:36 98.1 F 78 16 166/79 90 L 11/05/23 02:00 97.7 F 90 16 173/78 92 L 11/04/23 21:16 83 11/04/23 21:06 83 11/04/23 20:00 97.7 F 93 17 122/65 91 L Intake and Output 11/04/23 11/05/23 11/05/23 22:59 06:59 14:59 Other: # Voids 3 3 GENERAL DESCRIPTION: Elderly female lying in bed, no distress. No tachypnea or accessory muscle of respiration use. HEENT: Shows Pallor , no scleral icterus. Oral mucous membrane is dry. No pharyngeal erythema or thrush NECK: Trachea central, no thyromegaly. LUNGS: Unlabored breathing. Clear to auscultation anteriorly. No wheeze or crackle. HEART: S1, S2, regular rate and rhythm. No loud murmur ABDOMEN: Soft, no tenderness , guarding or rigidity, no organomegaly EXTREMITIES: No edema of feet. SKIN: No rash, no masses palpable. NEUROLOGICAL: The patient is awake, alert, oriented x3, mood and affect normal. Results CBC & Chem 7: 11/05/23 05:45 11/05/23 05:45 Labs: Abnormal Lab Results - Last 24 Hours (Table) 11/05/23 11/05/23 Range/Units 05:45 05:45 WBC 12.4 H (3.8-10.6) k/uL Hgb 8.8 L (11.4-16.0) gm/dL Hct 30.5 L (34.0-46.0) % MCV 78.4 L (80.0-100.0) fL MCH 22.7 L (25.0-35.0) pg MCHC 29.0 L (31.0-37.0) g/dL RDW 16.5 H (11.5-15.5) % BUN 66 H (7-17) mg/dL Creatinine 1.19 H (0.52-1.04) mg/dL Glucose 136 H (74-99) mg/dL Calcium 10.3 H (8.4-10.2) mg/dL Magnesium 2.6 H (1.6-2.3) mg/dL Microbiology - Last 24 Hours (Table) 11/03/23 11:45 Blood Culture Gram Stain - Preliminary Blood Blood Culture - Preliminary Gram Neg Bacilli 11/03/23 12:57 Blood Culture Gram Stain - Preliminary Blood Blood Culture - Preliminary Gram Neg Bacilli Molecular ID Assessment and Plan (1) Urinary tract infection Current Visit: Yes Status: Acute Code(s): N39.0 - URINARY TRACT INFECTION, SITE NOT SPECIFIED SNOMED Code(s): 38242596 (2) E coli bacteremia Current Visit: Yes Status: Acute Code(s): R78.81 - BACTEREMIA; B96.20 - UNSP ESCHERICHIA COLI [facility] Code(s): 195243215301 Plan: 1patient with E. coli bacteremia which is likely secondary to urinary source patient did have positive UA interestingly no significant urinary symptoms at the same time the patient do not have any abdominal symptoms and no tenderness was noticed patient did have elevated creatinine will need to rule out any obstructive uropathy 2-we will check ultrasound of the kidney bladder area 3-Rocephin 2 g daily while waiting for sensitivity to finalize We will follow on clinical condition and cultures to further adjust medication if needed Thank you for this consultation we will follow the patient along with you Dictation was produced using [employer] dictation software. please excuse any gram matical, word or spelling errors. Time with Patient: Greater than 30
--- NOTE | 2023-11-06 07:25 | US ---
EXAMINATION TYPE: US venous doppler duplex LE DATE OF EXAM: 11/05/2023 2:47 PM COMPARISON: NONE CLINICAL INDICATION: Female, 88 years old with history of ? PE; ? PE SIDE PERFORMED: Bilateral TECHNIQUE: The lower extremity deep venous system is examined utilizing real time linear array sonog madonna with graded compression, doppler sonography and color-flow sonography. VESSELS IMAGED: Common Femoral Vein Deep Femoral Vein Greater Saphenous Vein * Femoral Vein Popliteal Vein Small Saphenous Vein * Proximal Calf Veins (* superficial vessels) Right Leg: No evidence for DVT Left Leg: No evidence for DVT IMPRESSION: Grayscale, color doppler, spectral doppler imaging performed of the deep veins of the lo wer extremities. There is normal flow, compressibility, vascular waveforms.
[2023-11-06] MEDS: predniSONE 10 MG TAB PO SCH (09:02)
[2023-11-06] MEDS: METOPROLOL SUCCINATE (ER) 25 MG TAB.ER.24H PO SCH (09:02)
--- NOTE | 2023-11-06 13:38 | P.PN ---
Subjective Progress Note Date: 11/06/23 Patient is an 88-year-old female with past medical history significant for hypertension, hyperlipidemia, former tobacco smoker, and COPD. Patient is very hard of hearing. Her hearing aids have , and it is difficult to communicate. It appears that she has been suffering from shortness of breath progressively worsening over the last 2 weeks. This is associated with a persistent congested cough with clear sputum. Denies sick contacts. Denies fevers or chills. Denies chest pain. Denies hemoptysis. Patient finally came to the emergency room yesterday morning. Chest x-ray shows a subtle airspace opacity of the right lower lobe, possibly developing pneumonia. CBC on arrival: WBC count 11.2, hemoglobin 9.1, hematocrit 31, platelets 219. BMP on arrival: Sodium 136, potassium 3.4, chloride 102, serum bicarb 23, BUN 60, creatinine 1.64, glucose 117. Normal saline is infusing at 75 mL/h. Lactic acid level not elevated. Troponin less than 0.12. D-dimer was elevated at 1.53. More likely alternative diagnosis of pneumonia than pulmonary embolism. Nontachycardic. Blood pressure normotensive. No personal or family history of thromboembolism. No recent trauma, surgery, or prolonged travel. Viral panel negative for influenza, RSV, COVID. Started on combination of empiric antibiotics for community-acquired pneumonia including azithromycin and Rocephin. Afebrile. Currently sitting up in bed, on 3 L/min nasal cannula, in no acute distress. Does not wear home O2. Hemodynamically stable. The patient is seen today November 05, 2023 in follow-up on the regular medical floor. She is currently resting comfortably in bed. Awake and alert in no acute distress. She is maintaining good O2 saturations in the 90s on 3 L/min per nasal cannula. Normal saline at 20 MLS per hour. Her blood cultures are positive for gram-negative bacilli. Chest x-ray showed evidence of COPD with scattered pleural-parenchymal opacities bilaterally. Ventilation/perfusion scan revealed matched defect of the right upper lobe. Matched defect in the right middle lobe. No perfusion ventilation mismatch is are present.. White count 12.4. Hemoglobin 8.8. Platelets 201. Sodium 138. Potassium 3.7. Bicarb 25. BUN 66. Creatinine 1.19. Glucose 136. She is currently on ceftriaxone. Remains on bronchodilators and Solu-Medrol. The patient is seen today November 06, 2023 in follow-up on the regular medical floor. She is currently resting comfortably in bed. She is maintaining O2 saturations in the 90s on 4 L/min per nasal cannula. She has normal saline at KVO. Doppler of the lower extremities were negative for DVT. Blood cultures are positive for E. coli. Urine culture revealed no growth. Follow-up cultures are pending. No new labs today. She remains on ceftriaxone. Continued on bronchodilators. Prednisone taper. Objective - Vital Signs Vital signs: Vital Signs Temp 98.2 F 11/06/23 07:43 Pulse 85 11/06/23 11:47 Resp 15 11/06/23 07:43 BP 164/70 11/06/23 07:43 Pulse Ox 91 L 11/06/23 07:43 FiO2 Intake & Output 11/05/23 11/06/23 11/06/23 18:59 06:59 18:59 Other: # Voids 7 3 - Exam GENERAL EXAM: Alert, very hard of hearing 88-year-old female, on 4 L nasal cannula, comfortable in no apparent distress. HEAD: Normocephalic and atraumatic EYES: Normal reaction of pupils, equal size. NOSE: Clear with pink turbinates. THROAT: No erythema or exudates. Dry mucous membranes NECK: No masses, no JVD. CHEST: No chest wall deformity. LUNGS: Equal air entry with few scattered rhonchi. No conversational dyspnea. CVS: S1 and S2 normal with no audible murmur, regular rhythm. No extra heart sounds ABDOMEN: No hepatosplenomegaly, active bowel sounds, no guarding or rigidity. SPINE: No scoliosis or deformity SKIN: No rashes CENTRAL NERVOUS SYSTEM: No focal deficits, tone is normal in all 4 extremities. EXTREMITIES: There is no peripheral edema, clubbing, or cyanosis. Peripheral pulses are intact. - Labs CBC & Chem 7: 11/05/23 05:45 11/05/23 05:45 Labs: Microbiology - Last 24 Hours (Table) 11/05/23 05:45 Blood Culture - Preliminary Blood 11/03/23 11:45 Blood Culture Gram Stain - Final Blood Blood Culture - Final Escherichia coli Coagulase Negative Staph 11/03/23 12:57 Blood Culture Gram Stain - Final Blood Blood Culture - Final Escherichia coli Molecular ID 11/04/23 12:50 Urine Culture - Final Urine,Voided Assessment and Plan Assessment: Suspected right lower lobe community-acquired pneumonia. Chest x-ray shows a subtle airspace opacity of the right lower lobe, possibly developing pneumonia. Negative for influenza, RSV, COVID. Possible mild exacerbation of chronic obstructive pulmonary disease, secondary to above Acute hypoxemic respiratory failure, secondary to above Bacteremia secondary to E. coli Jr remains on ceftriaxone Former tobacco dependence, quit smoking 3 years ago Microcytic hypochromic anemia, no overt signs of acute blood loss Elevated D-dimer, clinical suspicion for PE is low. Ventilation/perfusion scan showed matched defects in the right upper and mid lobes. Severe dehydration and reduced oral intake Acute kidney injury, possibly secondary to above, creatinine 1.64 History of hypertension History of hyperlipidemia Hard of hearing Plan: The patient was seen and evaluated Venous Doppler and medications reviewed Remains on ceftriaxone Continue bronchodilators prednisone Titrate the FiO2 as tolerated We will continue to follow I have personally seen and examined the patient, performed the documentation and the assessment and plan as written. Number of minutes spent on the visit: 10.
--- NOTE | 2023-11-06 14:59 | US ---
EXAMINATION TYPE: US renals and bladder DATE OF EXAM: 11/06/2023 COMPARISON: NONE CLINICAL INDICATION: Female, 88 years old with history of e coli bacteremia; infection EXAM MEASUREMENTS: Right Kidney: 10.5 x 6.4 x 5.9 cm Left Kidney: 11.3 x 4.1 x 4.9 cm Right Kidney: No hydronephrosis or masses seen Left Kidney: No hydronephrosis or masses seen Bladder: wnl, mobile debris noted Bilateral Jets seen: left There is no evidence for hydronephrosis at this point in time. No nephrolithiasis is seen. No horacio s are identified. The urinary bladder is anechoic. Bilateral ureteral jets are seen. IMPRESSION: Debris noted within the urinary bladder lumen.
--- NOTE | 2023-11-06 15:56 | P.PN ---
Subjective Progress Note Date: 11/06/23 88 year old F with PMH of COPD, 60 PPD smoker, hypertension, dyslipidemia presents to the ED. Daughter is at bedside contributing to the history. She reports patient has been mostly sleeping since Thursday. She attended a on which may have been too stimulating. Recently obtained a nebulizer machine and has been doing treatments at home. Daughter reports a wet cough and 10 pound subjective weight loss over the past 2 weeks. She reports a poor appetite. In the ED, she underwent extensive evaluation. BP 107/65, HR 94, RR 20, T 98.3F, 76% on RA. CBC, Coag panel panel done significant for WBC 11.2, Hg 9.1, Hct 31, MCV 76.8. VBG pH 7.4, pCO2 42. COVID, Flu, RSV negative. CXR showed possible RLL PNA. Patient is admitted for further management. Started on Rocephin and Azithromycin for treatment for PNA. Pulmonary consulted, started on bronchodilators and SoluMedrol. Blood culture came back + for E. coli and gram positive bacteria. 11/03 Patient was seen and examined. Mentation improved. Daughter at bedside. Patient denies any dysuria or abdominal pain. Currently 91% on 3L NC. CBC shows Hg 8.9, Hct 30.1, MCV 78.6. BMP K 3.3, AG 14.1, BUN 68.5, Cr 1.7, glu 134, Ca 8.5. Iron 10, % sat 3.61. Procal 2. D-Dimer 1.53. UA shows moderate LE with 66 WBCs. BCx + E. coli and gram positive. CXR done today shows stable chest infiltrates. 11/04 Patient was seen and examined. Doing well. No complaints. V/Q scan shows intermediate probability of PE, started on Eliquis. CBC WBC 12.4, Hg 8.8 Hct 30.5, MCV 78.4. BMP BUN 66, Cr 1.19, glu 136, Ca 10.3. Mag 2.6. 11/05 Patient was seen and examined. Doing well. No complaints. Pulmonary note reviewed, does not believe patient has a PE. Venous doppler negative. We will discontinue Eliquis. ID consulted for E. coli bacteremia, renal US ordered. Repeat BCx pending. General: non toxic, no distress, appears at stated age Derm: warm, dry Head: atraumatic, normocephalic, symmetric Eyes: EOMI, no lid lag, pale sclera Mouth: no lip lesion, mucus membranes moist Cardiovascular: S1S2 reg, no murmur Lungs: Decreased bilateral, no rhonchi, no rales , no accessory muscle use Ext: no gross muscle atrophy, no edema, no contractures Neuro: no focal neuro deficits Psych: Alert, oriented, appropriate affect Based on my assessment of this patient, this patient meets a high complexity level of care. Patient has an acute diagnosis of acute hypoxic respiratory failure due to COPD exacerbation and PNA that poses a threat to life or bodily function. Acute hypoxic respiratory failure: Currently on 4L NC. Likely related to PNA. Elevated D-Dimer: V/Q scan intermediate probability of PE. Venous duplex negative. Pulmonary highly doubtful that patient has PE. Eliquis discontinued. Sepsis due to community acquired pneumonia: Patient meets sepsis criteria with leukocytosis, tachycardia, infiltrate on CXR. Rocephin 2g IV QD. Completed 3 days of Azithromycin 500 mg. Telemetry monitoring. Sputum and blood cultures. Legionella Ag negative. Pulmonary on board. E. coli and gram + bacteremia: Likely source urine. Continue Rocephin as above. UCx negative. Renal US ordered. Repeat BCx pending. ID consulted. COPD exacerbation: DuoNeb QID scheduled and Q2H PRN for SOB/wheezing. Prednisone 30 mg PO QD. Microcytic anemia: Iron studies indicating iron deficiency anemia. Hg 11.1 in 2020. Transfuse if Hg < 7. Hypertension: Hold Lisinopril, HCTZ. Restart Metoprolol 25 mg PO QD. Dyslipidemia: Lipitor 80 mg PO QD. CODE STATUS: FULL CODE. DVT Prophylaxis: Lovenox GI Prophylaxis: Protonix Designated medical POA if patient is not able to make medical decisions for themselves: Daughter I have reviewed the following parts consultant notes: Pulmonary. I have reviewed the results of the following tests: Venous duplex. I have ordered the following tests: Renal US I have discussed the care of this patient with the following independent historian: I have independently interpreted the following test below: I have discussed the management of this patient with the following physician: Objective - Vital Signs Vital signs: Vital Signs Temp 98.2 F 11/06/23 07:43 Pulse 88 11/06/23 07:51 Resp 15 11/06/23 07:43 BP 164/70 11/06/23 07:43 Pulse Ox 91 L 11/06/23 07:43 FiO2 Intake & Output 11/05/23 11/06/23 11/06/23 18:59 06:59 18:59 Other: # Voids 7 3 - Labs CBC & Chem 7: 11/05/23 05:45 11/05/23 05:45 Labs: Microbiology - Last 24 Hours (Table) 11/03/23 11:45 Blood Culture Gram Stain - Final Blood Blood Culture - Final Escherichia coli Coagulase Negative Staph 11/03/23 12:57 Blood Culture Gram Stain - Final Blood Blood Culture - Final Escherichia coli Molecular ID 11/04/23 12:50 Urine Culture - Final Urine,Voided
--- NOTE | 2023-11-06 16:00 | CDI ---
Documentation Clarification Form Date: 11/05/2023 12:38:00 PM From: Lucille Monae RN CCDS Phone: [phone] Admit Date: 11/03/2023 02:30:00 PM Patient Name: Justine Arriola Visit Number: [id number] Discharge Date: ATTENTION: The Clinical Documentation Specialists (CDI) and [facility] Coding Staff appreciate your assistance in clarifying documentation. Please respond to the clarification below the line at the bottom and electronically sign. The CDI & [facility] Coding staff will review the response and follow-up if needed. Please note: Queries are made part of the Legal Health Record. If you have any questions, please contact the author of this message via ITS. Dr. Marysol Medina,DO The Registered Dietitian assessment on 11/03 indicates this patient meets criteria for Acute Severe Malnutrition. Based on this information and the findings below, is there an additional diagnosis that is clinically appropriate for this patient? History/Risk Factors: 88 year old female presents to the ED with cough, dyspnea, confusion and fever for two weeks. Medical History: COPD, Smoker and HTN. 11/02, H&P. Clinical Indicators: RD Consult Assessment see below: Current BMI: 16.9kg, Hgt 5ft 4inch, Wgt 44.906kg stated by patient Nutrition good percent consumed 75-100% x 1 meal regular diet Physical findings: Underweight, mild upper arm region (triceps) fat wasting. Estimated Nutritional Needs, used current weight to estimate nutritional needs. Energy formula for estimated nutritional needs 30-35 Kcals/Kg Energy Needs [id number] Kcal. Increased caloric needs for weight gain and COPD Estimated Protein needs Range 1.2 1.5gm/kg. Estimated Protein needs 53-67grams/day. Nutritional Diagnosis: Acute severe malnutrition. Increase po intake from 50-75%, Meeting 5% of estimated nutritional needs. Tolerating po diet by discharge. [Cite applicable ASPEN criteria listed below] Treatment: Monitor po intake, monitor supplement intake. Diet education. Supplements: 11/03 Ensure Enlive TID Is there an additional diagnosis that is clinically appropriate for this patient? [ X ] Severe Protein-Calorie Malnutrition [ ] Other condition, please specify [ ] Unable to Determine (Template Last Revised: January 2023) MTDD
--- NOTE | 2023-11-07 08:16 | P.PN ---
Subjective Progress Note Date: 11/06/23 Principal diagnosis: Reason for follow-up is E. coli bacteremia Patient is a 88-year-old female with a past medical history significant for hypertension presenting to the hospital for evaluation of weakness increasing shortness of breath patient did have evidence of E. coli bacteremia prompting this consultation. On today's evaluation that is 11/06/2023, the patient continues to be afebrile, the patient is on 2 L nasal cannula oxygen and breathing comfortably, the Pt denies having any chest pain or cough, the patient denies having any abdominal pain no vomiting or any diarrhea has been reported by the nursing staff. No lab draw today blood culture finalized with E. coli sensitive to Rocephin blood culture repeat so far pending Objective - Vital Signs Vital signs: Vital Signs Temp 97.7 F 11/06/23 19:40 Pulse 87 11/06/23 20:44 Resp 18 11/06/23 19:40 BP 150/72 11/06/23 19:40 Pulse Ox 95 11/06/23 19:40 FiO2 Intake & Output 11/06/23 11/06/23 11/07/23 06:59 18:59 06:59 Weight 44.906 kg Other: # Voids 3 5 - Exam GENERAL DESCRIPTION: An elderly female lying in bed in no distress RESPIRATORY SYSTEM: Unlabored breathing , decreased breath sounds at bases HEART: S1 S2 regular rate and rhythm , ABDOMEN: Soft , no tenderness EXTREMITIES: No edema feet - Labs CBC & Chem 7: 11/05/23 05:45 11/05/23 05:45 Labs: Microbiology - Last 24 Hours (Table) 11/05/23 05:45 Blood Culture - Preliminary Blood 11/03/23 11:45 Blood Culture Gram Stain - Final Blood Blood Culture - Final Escherichia coli Coagulase Negative Staph 11/03/23 12:57 Blood Culture Gram Stain - Final Blood Blood Culture - Final Escherichia coli Molecular ID Assessment and Plan (1) Urinary tract infection Current Visit: Yes Status: Acute Code(s): N39.0 - URINARY TRACT INFECTION, SITE NOT SPECIFIED SNOMED Code(s): 49828112 (2) E coli bacteremia Current Visit: Yes Status: Acute Code(s): R78.81 - BACTEREMIA; B96.20 - UNSP ESCHERICHIA COLI THE CAUSE OF DISEASES CLASSD [facility] SNOMED Code(s): 164743860559 Plan: 1patient with E. coli bacteremia which is likely secondary to urinary source patient did have positive UA interestingly no significant urinary symptoms at the same time the patient do not have any abdominal symptoms and no tenderness was noticed patient did have elevated creatinine will need to rule out any obstructive uropathy 2-ultrasound of the kidney bladder area did not show any hydronephrosis mention debris within the bladder 3-patient to continue with Rocephin 2 g daily while inpatient and finishing therapy with oral antibiotics Dictation was produced using [employer] dictation software. please excuse any grammatical, word or spelling errors. Time with Patient: Less than 30
--- NOTE | 2023-11-07 11:57 | P.PN ---
Subjective Progress Note Date: 11/07/23 88 year old F with PMH of COPD, 60 PPD smoker, hypertension, dyslipidemia presents to the ED. Daughter is at bedside contributing to the history. She reports patient has been mostly sleeping since Thursday. She attended a on which may have been too stimulating. Recently obtained a nebulizer machine and has been doing treatments at home. Daughter reports a wet cough and 10 pound subjective weight loss over the past 2 weeks. She reports a poor appetite. In the ED, she underwent extensive evaluation. BP 107/65, HR 94, RR 20, T 98.3F, 76% on RA. CBC, Coag panel panel done significant for WBC 11.2, Hg 9.1, Hct 31, MCV 76.8. VBG pH 7.4, pCO2 42. COVID, Flu, RSV negative. CXR showed possible RLL PNA. Patient is admitted for further management. Started on Rocephin and Azithromycin for treatment for PNA. Procal 2. Pulmonary consulted, started on bronchodilators and SoluMedrol. D-Dimer was elevated 1.53, V/Q scan showed intermediate probability of PE. Venous duplex negative. Pulmonar y was very doubtful that she had a PE. No anticoagulation was continued. Blood culture came back + for E. coli and gram positive bacteria. ID was consulted. UA showed moderate LE with 66 WBCs. Renal US shows no hydronephrosis and debris within the urinary bladder. Urine culture was negative. Repeat blood cultures negative at 24H so far. 11/06 Patient was seen and examined. Mentation is greatly improved. She has no complaints. Currently on 4L NC saturating 91%. No new lab work done today. Repeat BCx prelim negative at 24H. General: non toxic, no distress, appears at stated age Derm: warm, dry Head: atraumatic, normocephalic, symmetric Eyes: EOMI, no lid lag, pale sclera Mouth: no lip lesion, mucus membranes moist Cardiovascular: S1S2 reg, no murmur Lungs: Decreased bilateral, no rhonchi, no rales , no accessory muscle use Ext: no gross muscle atrophy, no edema, no contractures Neuro: no focal neuro deficits Psych: Alert, oriented, appropriate affect Based on my assessment of this patient, this patient meets a high complexity level of care. Patient has an acute diagnosis of acute hypoxic respiratory failure due to COPD exacerbation and PNA that poses a threat to life or bodily function. Sepsis due to E. coli and gram + bacteremia: Likely source urine. Continue Rocephin as above. UCx negative. Renal US shows bladder debris. Repeat BCx negative so far. ID on board. Acute hypoxic respiratory failure: Currently on 4L NC. Likely related to PNA. Repeat CXR tomorrow. Elevated D-Dimer: V/Q scan intermediate probability of PE. Venous duplex negative. Pulmonary highly doubtful that patient has PE. Eliquis discontinued. Community acquired pneumonia: Patient meets sepsis criteria with leukocytosis, tachycardia, infiltrate on CXR. Rocephin 2g IV QD. Completed 3 days of Azithr omycin 500 mg. Telemetry monitoring. Sputum and blood cultures. Legionella Ag negative. Repeat CXR tomorrow. Home O2 eval prior to discharge. Pulmonary on board. COPD exacerbation: DuoNeb QID scheduled and Q2H PRN for SOB/wheezing. Prednisone 30 mg PO QD. Microcytic anemia: Iron studies indicating iron deficiency anemia. Hg 11.1 in 2019. Transfuse if Hg < 7. Hypertension: Hold Lisinopril, HCTZ. Restart Metoprolol 25 mg PO QD. Dyslipidemia: Lipitor 80 mg PO QD. CODE STATUS: FULL CODE. DVT Prophylaxis: Lovenox GI Prophylaxis: Protonix Designated medical POA if patient is not able to make medical decisions for themselves: Daughter I have reviewed the following life skills consultant notes: Pulmonary, ID. I have reviewed the results of the following tests: Repeat BCx. Renal US. I have ordered the following tests: CXR tomorrow. CBC and BMP tomorrow. I have discussed the care of this patient with the following independent historian: I have independently interpreted the following test below: I have discussed the management of this patient with the following physician: Objective - Vital Signs Vital signs: Vital Signs Temp 98.6 F 11/07/23 06:56 Pulse 82 11/07/23 08:31 Resp 19 11/07/23 08:00 BP 168/75 11/07/23 06:56 Pulse Ox 91 L 11/07/23 09:34 FiO2 Intake & Output 11/06/23 11/07/23 11/07/23 18:59 06:59 18:59 Weight 44.906 kg Other: # Voids 5 5 - Labs CBC & Chem 7: 11/05/23 05:45 11/05/23 05:45 Labs: Microbiology - Last 24 Hours (Table) 11/05/23 05:45 Blood Culture - Preliminary Blood
--- NOTE | 2023-11-07 14:36 | P.PN ---
Subjective Progress Note Date: 11/07/23 Patient is an 88-year-old female with past medical history significant for hypertension, hyperlipidemia, former tobacco smoker, and COPD. Patient is very hard of hearing. Her hearing aids have , and it is difficult to communicate. It appears that she has been suffering from shortness of breath progressively worsening over the last 2 weeks. This is associated with a persistent congested cough with clear sputum. Denies sick contacts. Denies fevers or chills. Denies chest pain. Denies hemoptysis. Patient finally came to the emergency room yesterday morning. Chest x-ray shows a subtle airspace opacity of the right lower lobe, possibly developing pneumonia. CBC on arrival: WBC count 11.2, hemoglobin 9.1, hematocrit 31, platelets 219. BMP on arrival: Sodium 136, potassium 3.4, chloride 102, serum bicarb 23, BUN 60, creatinine 1.64, glucose 117. Normal saline is infusing at 75 mL/h. Lactic acid level not elevated. Troponin less than 0.12. D-dimer was elevated at 1.53. More likely alternative diagnosis of pneumonia than pulmonary embolism. Nontachycardic. Blood pressure normotensive. No personal or family history of thromboembolism. No recent trauma, surgery, or prolonged travel. Viral panel negative for influenza, RSV, COVID. Started on combination of empiric antibiotics for community-acquired pneumonia including azithromycin and Rocephin. Afebrile. Currently sitting up in bed, on 3 L/min nasal cannula, in no acute distress. Does not wear home O2. Hemodynamically stable. The patient is seen today November 05, 2023 in follow-up on the regular medical floor. She is currently resting comfortably in bed. Awake and alert in no acute distress. She is maintaining good O2 saturations in the 90s on 3 L/min per nasal cannula. Normal saline at 20 MLS per hour. Her blood cultures are positive for gram-negative bacilli. Chest x-ray showed evidence of COPD with scattered pleural-parenchymal opacities bilaterally. Ventilation/perfusion scan revealed matched defect of the right upper lobe. Matched defect in the right middle lobe. No perfusion ventilation mismatch is are present.. White count 12.4. Hemoglobin 8.8. Platelets 201. Sodium 138. Potassium 3.7. Bicarb 25. BUN 66. Creatinine 1.19. Glucose 136. She is currently on ceftriaxone. Remains on bronchodilators and Solu-Medrol. The patient is seen today November 06, 2023 in follow-up on the regular medical floor. She is currently resting comfortably in bed. She is maintaining O2 saturations in the 90s on 4 L/min per nasal cannula. She has normal saline at KVO. Doppler of the lower extremities were negative for DVT. Blood cultures are positive for E. coli. Urine culture revealed no growth. Follow-up cultures are pending. No new labs today. She remains on ceftriaxone. Continued on bronchodilators. Prednisone taper. The patient is seen today November 07, 2023 in follow-up on the regular medical floor. She is awake and alert in no acute distress. Resting fairly comfortably in bed. She is requiring 4 L nasal cannula oxygen to maintain O2 saturation in the 90s. She has normal saline at KVO. She continues with a loose cough and scattered rhonchi. She remains on ceftriaxone. Continues on bronchodilators and prednisone. Blood cultures are positive for E. coli. Urine culture revealed no growth. Objective - Vital Signs Vital signs: Vital Signs Temp 97.7 F 11/07/23 13:47 Pulse 80 11/07/23 13:47 Resp 19 11/07/23 13:47 BP 113/62 11/07/23 13:47 Pulse Ox 94 L 11/07/23 13:47 FiO2 Intake & Output 11/06/23 11/07/23 11/07/23 18:59 06:59 18:59 Weight 44.906 kg Other: # Voids 5 5 - Exam GENERAL EXAM: Alert, hard of hearing 88-year-old female, on 4 L nasal cannula, in no apparent distress. HEAD: Normocephalic and atraumatic EYES: Normal reaction of pupils, equal size. NOSE: Clear with pink turbinates. THROAT: No erythema or exudates. Dry mucous membranes NECK: No masses, no JVD. CHEST: No chest wall deformity. LUNGS: Equal air entry with few scattered rhonchi. No conversational dyspnea. CVS: S1 and S2 normal with no audible murmur, regular rhythm. No extra heart sounds ABDOMEN: No hepatosplenomegaly, active bowel sounds, no guarding or rigidity. SPINE: No scoliosis or deformity SKIN: No rashes CENTRAL NERVOUS SYSTEM: No focal deficits, tone is normal in all 4 extremities. EXTREMITIES: There is no peripheral edema, clubbing, or cyanosis. Peripheral pulses are intact. - Labs CBC & Chem 7: 11/05/23 05:45 11/05/23 05:45 Labs: Microbiology - Last 24 Hours (Table) 11/05/23 05:45 Blood Culture - Preliminary Blood Assessment and Plan Assessment: Suspected right lower lobe community-acquired pneumonia. Chest x-ray shows a subtle airspace opacity of the right lower lobe, possibly developing pneumonia. Negative for influenza, RSV, COVID. Possible mild exacerbation of chronic obstructive pulmonary disease, secondary to above Acute hypoxemic respiratory failure, secondary to above Bacteremia secondary to E. coli, remains on ceftriaxone Former tobacco dependence, quit smoking 3 years ago Microcytic hypochromic anemia, no overt signs of acute blood loss Elevated D-dimer, clinical suspicion for PE is low. Ventilation/perfusion scan showed matched defects in the right upper and mid lobes. Severe dehydration and reduced oral intake Acute kidney injury, possibly secondary to above, creatinine 1.64 History of hypertension History of hyperlipidemia Hard of hearing Plan: The patient was seen and evaluated Medications reviewed Remains on ceftriaxone Continue bronchodilators, prednisone Titrate the FiO2 as tolerated Follow-up chest x-ray in a.m. We will continue to follow I have personally seen and examined the patient, performed the documentation and the assessment and plan as written. Number of minutes spent on the visit: 10.
[2023-11-08 04:51] LABS: African American GFR (CKD) 89 (>60 ml/min/1.73 sqM); Anion Gap -1 mmol/L; Blood Urea Nitrogen 31 mg/dL (7-17); Calcium 8.7 mg/dL (8.4-10.2); Carbon Dioxide 38 mmol/L (22-30); Chloride 100 mmol/L (98-107); Glucose 89 mg/dL (74-99); Non-African American GFR(CKD) 78 (>60 ml/min/1.73 sqM); Potassium 3.9 mmol/L (3.5-5.1); Sodium 137 mmol/L (137-145)
[2023-11-08 05:00] LABS: Anisocytosis Slight; HCT 29.9 % (34.0-46.0); HGB 8.7 gm/dL (11.4-16.0); Hypochromasia Marked; MCH 22.6 pg (25.0-35.0); MCV 77.8 fL (80.0-100.0); Mean Platelet Volume 9.3; Microcytosis Slight; Platelet Count 247 k/uL (150-450); Poikilocytosis Slight; RBC 3.84 m/uL (3.80-5.40); RDW 16.5 % (11.5-15.5); WBC 11.6 k/uL (3.8-10.6)
--- NOTE | 2023-11-08 12:51 | P.PN ---
Subjective Progress Note Date: 11/08/23 Patient is an 88-year-old female with past medical history significant for hypertension, hyperlipidemia, former tobacco smoker, and COPD. Patient is very hard of hearing. Her hearing aids have , and it is difficult to communicate. It appears that she has been suffering from shortness of breath progressively worsening over the last 2 weeks. This is associated with a persistent congested cough with clear sputum. Denies sick contacts. Denies fevers or chills. Denies chest pain. Denies hemoptysis. Patient finally came to the emergency room yesterday morning. Chest x-ray shows a subtle airspace opacity of the right lower lobe, possibly developing pneumonia. CBC on arrival: WBC count 11.2, hemoglobin 9.1, hematocrit 31, platelets 219. BMP on arrival: Sodium 136, potassium 3.4, chloride 102, serum bicarb 23, BUN 60, creatinine 1.64, glucose 117. Normal saline is infusing at 75 mL/h. Lactic acid level not elevated. Troponin less than 0.12. D-dimer was elevated at 1.53. More likely alternative diagnosis of pneumonia than pulmonary embolism. Nontachycardic. Blood pressure normotensive. No personal or family history of thromboembolism. No recent trauma, surgery, or prolonged travel. Viral panel negative for influenza, RSV, COVID. Started on combination of empiric antibiotics for community-acquired pneumonia including azithromycin and Rocephin. Afebrile. Currently sitting up in bed, on 3 L/min nasal cannula, in no acute distress. Does not wear home O2. Hemodynamically stable. The patient is seen today November 05, 2023 in follow-up on the regular medical floor. She is currently resting comfortably in bed. Awake and alert in no acute distress. She is maintaining good O2 saturations in the 90s on 3 L/min per nasal cannula. Normal saline at 20 MLS per hour. Her blood cultures are positive for gram-negative bacilli. Chest x-ray showed evidence of COPD with scattered pleural-parenchymal opacities bilaterally. Ventilation/perfusion scan revealed matched defect of the right upper lobe. Matched defect in the right middle lobe. No perfusion ventilation mismatch is are present.. White count 12.4. Hemoglobin 8.8. Platelets 201. Sodium 138. Potassium 3.7. Bicarb 25. BUN 66. Creatinine 1.19. Glucose 136. She is currently on ceftriaxone. Remains on bronchodilators and Solu-Medrol. The patient is seen today November 06, 2023 in follow-up on the regular medical floor. She is currently resting comfortably in bed. She is maintaining O2 saturations in the 90s on 4 L/min per nasal cannula. She has normal saline at KVO. Doppler of the lower extremities were negative for DVT. Blood cultures are positive for E. coli. Urine culture revealed no growth. Follow-up cultures are pending. No new labs today. She remains on ceftriaxone. Continued on bronchodilators. Prednisone taper. The patient is seen today November 07, 2023 in follow-up on the regular medical floor. She is awake and alert in no acute distress. Resting fairly comfortably in bed. She is requiring 4 L nasal cannula oxygen to maintain O2 saturation in the 90s. She has normal saline at KVO. She continues with a loose cough and scattered rhonchi. She remains on ceftriaxone. Continues on bronchodilators and prednisone. Blood cultures are positive for E. coli. Urine culture revealed no growth. The patient is seen today November 08, 2023 in follow-up on the regular medical floor. She is resting comfortably in bed. Awake and alert in no acute distress. Maintaining O2 saturations in the 90s on 3 L/min per nasal cannula. She continues on bronchodilators. Remains on a prednisone. Continues on ceftriaxone. Blood cultures positive for E. coli. Urine culture revealed no growth. Follow-up blood cultures are pending. White count 11.6. Hemoglobin 8.7. Platelets 247. Sodium 137. Potassium 3.9. Bicarb 38. BUN 31. Creatinine 0.7. Glucose 89. Objective - Vital Signs Vital signs: Vital Signs Temp 98.2 F 11/08/23 07:25 Pulse 82 11/08/23 11:28 Resp 19 11/08/23 07:25 BP 158/62 11/08/23 07:25 Pulse Ox 94 L 11/08/23 08:06 FiO2 Intake & Output 11/07/23 11/08/23 11/08/23 18:59 06:59 18:59 Other: # Voids 3 3 - Exam GENERAL EXAM: Alert, pleasant 88-year-old female, on 2 L nasal cannula, in no apparent distress. HEAD: Normocephalic and atraumatic EYES: Normal reaction of pupils, equal size. NOSE: Clear with pink turbinates. THROAT: No erythema or exudates. Dry mucous membranes NECK: No masses, no JVD. CHEST: No chest wall deformity. LUNGS: Equal air entry with few scattered rhonchi. No conversational dyspnea. CVS: S1 and S2 normal with no audible murmur, regular rhythm. No extra heart sounds ABDOMEN: No hepatosplenomegaly, active bowel sounds, no guarding or rigidity. SPINE: No scoliosis or deformity SKIN: No rashes CENTRAL NERVOUS SYSTEM: No focal deficits, tone is normal in all 4 extremities. EXTREMITIES: There is no peripheral edema, clubbing, or cyanosis. Peripheral pulses are intact. - Labs CBC & Chem 7: 11/08/23 03:46 11/08/23 03:46 Labs: Abnormal Lab Results - Last 24 Hours (Table) 11/08/23 11/08/23 Range/Units 03:46 03:46 WBC 11.6 H (3.8-10.6) k/uL Hgb 8.7 L (11.4-16.0) gm/dL Hct 29.9 L (34.0-46.0) % MCV 77.8 L (80.0-100.0) fL MCH 22.6 L (25.0-35.0) pg MCHC 29.0 L (31.0-37.0) g/dL RDW 16.5 H (11.5-15.5) % Carbon Dioxide 38 H (22-30) mmol/L BUN 31 H (7-17) mg/dL Microbiology - Last 24 Hours (Table) 11/05/23 05:45 Blood Culture - Preliminary Blood Assessment and Plan Assessment: Suspected right lower lobe community-acquired pneumonia. Chest x-ray shows a s ubtle airspace opacity of the right lower lobe, possibly developing pneumonia. Negative for influenza, RSV, COVID. Possible mild exacerbation of chronic obstructive pulmonary disease, secondary to above Acute hypoxemic respiratory failure, secondary to above Bacteremia secondary to E. coli, remains on ceftriaxone Former tobacco dependence, quit smoking 3 years ago Microcytic hypochromic anemia, no overt signs of acute blood loss Elevated D-dimer, clinical suspicion for PE is low. Ventilation/perfusion scan showed matched defects in the right upper and mid lobes. Severe dehydration and reduced oral intake Acute kidney injury, possibly secondary to above, improved and creatinine down to 0.70 History of hypertension History of hyperlipidemia Hard of hearing Plan: The patient was seen and evaluated Medications and labs reviewed Remains on ceftriaxone Continue bronchodilators, prednisone Titrate the FiO2 as tolerated Follow-up chest x-ray pending We will continue to follow I have personally seen and examined the patient, performed the documentation and the assessment and plan as written. Number of minutes spent on the visit: 10.
--- NOTE | 2023-11-08 14:54 | P.PN ---
Subjective Progress Note Date: 11/08/23 Patient is an 88-year-old female with COPD, prior tobacco abuse, hypertension, and dyslipidemia who presented to the emergency department due to increased fatigue as well and has what cough and poor appetite. On arrival to the ER she was hypoxic with an O2 sat of 76% on room air. Initial laboratory analysis was remarkable for white blood cell count 11.2, sodium 136, potassium 3.4, BUN 60, creatinine 1.64. Influenza A/B/RSV/COVID-19 testing was negative. Initial chest x-ray demonstrated no acute cardiopulmonary process. Patient was admitted for possible pneumonia with sepsis and COPD exacerbation. She was started on antibiotics, bronchodilators, and steroids. Pulmonary was consulted. Patient had a blood culture positive for E. coli. UA was subsequently obtained which showed 66 white blood cells. She underwent VQ scan which was indeterminate for pulmonary embolism. Initially she was on some anticoagulation. However she then underwent venous Doppler which was negative for any sign of acute DVT. After discussion with pulmonary was felt that she had low probability of pulm onary embolism. Infectious disease was consulted who agreed with continuation of Rocephin. She was felt to have possible urinary tract infection. Patient underwent renal ultrasound which demonstrated debris within the urinary bladder but no signs of hydronephrosis. Repeat blood cultures were negative for 72 hours. Urine culture showed possible urogenital malachi. Her mentation and oxygenation continued to improve. Patient seen and examined at bedside. She has no complaints. She denies any shortness of breath, nausea, or vomiting. Vital signs reviewed General: Nontoxic, no distress, appears at stated age Cardiovascular: S1S2 reg, no murmur Lungs: CTA bilateral, no rhonchi, no rales, no accessory muscle use Abdominal: Soft, nontender to palpation, no guarding Ext: No gross muscle atrophy, no edema b/l lower extremities, no contractures Neuro: CN II-XI grossly intact, no focal neuro deficits Psych: Alert, oriented, appropriate affect Assessment/Plan: Right lower lobe community-acquired pneumonia Acute exacerbation of COPD Acute hypoxic respiratory failure E. coli bacteremia Possible urinary tract infection per infectious disease -Completed Zithromax x 3 -Rocephin 2 g IV piggyback every 24 hours day #6. Will go beyond 5 days due to bacteremia -Prednisone 30 mg daily day #3 -DuoNebs 4 times daily scheduled, and as needed - ID recs reviewed: complete with oral abx - Pulm recs reviewed continue current care plan. Dehydration, resolved Acute kidney injury, resolved Elevated D-dimer, clinical suspicion for PE low Chronic: Hypertension Dyslipidemia Imaging: Chest x-ray is reviewed by myself shows enlarged cardiac silhouette with loss of the left heart boarder. Data Review: Labs reviewed from today include CBC and basic metabolic profile which are remarkable for white blood cell count 11.6, hemoglobin 8.7. DVT prophylaxis: Heparin Anticipated discharge date: in AM Anticipated discharge place: This dictation was prepared using [employer] voice recognition software. Though every attempt is made to correct errors during dictation some may still exist. Objective - Vital Signs Vital signs: Vital Signs Temp 97.4 F L 11/08/23 13:14 Pulse 74 11/08/23 13:14 Resp 19 11/08/23 13:14 BP 135/64 11/08/23 13:14 Pulse Ox 94 L 11/08/23 13:14 FiO2 Intake & Output 11/07/23 11/08/23 11/08/23 18:59 06:59 18:59 Other: # Voids 3 3 - Labs CBC & Chem 7: 11/08/23 03:46 11/08/23 03:46 Labs: Abnormal Lab Results - Last 24 Hours (Table) 11/08/23 11/08/23 Range/Units 03:46 03:46 WBC 11.6 H (3.8-10.6) k/uL Hgb 8.7 L (11.4-16.0) gm/dL Hct 29.9 L (34.0-46.0) % MCV 77.8 L (80.0-100.0) fL MCH 22.6 L (25.0-35.0) pg MCHC 29.0 L (31.0-37.0) g/dL RDW 16.5 H (11.5-15.5) % Carbon Dioxide 38 H (22-30) mmol/L BUN 31 H (7-17) mg/dL Microbiology - Last 24 Hours (Table) 11/05/23 05:45 Blood Culture - Preliminary Blood
--- NOTE | 2023-11-08 16:28 | P.PN ---
Subjective Progress Note Date: 11/07/23 Principal diagnosis: Reason for follow-up is E. coli bacteremia Patient is a 88-year-old female with a past medical history significant for hypertension presenting to the hospital for evaluation of weakness increasing shortness of breath patient did have evidence of E. coli bacteremia prompting this consultation. On today's evaluation that is 11/07/2023, Patient is afebrile patient is currently on 3 L nasal cannula oxygen and denies having any shortness of breath, the patient denies any chest pain or cough, the patient denies any nausea vomiting did not have any abdominal pain and no diarrhea feeling better. No lab draw today Objective - Vital Signs Vital signs: Vital Signs Temp 97.7 F 11/07/23 13:47 Pulse 80 11/07/23 13:47 Resp 19 11/07/23 13:47 BP 113/62 11/07/23 13:47 Pulse Ox 94 L 11/07/23 13:47 FiO2 Intake & Output 11/06/23 11/07/23 11/07/23 18:59 06:59 18:59 Weight 44.906 kg Other: # Voids 5 5 - Exam GENERAL DESCRIPTION: An elderly female lying in bed in no distress RESPIRATORY SYSTEM: Unlabored breathing , decreased breath sounds at bases HEART: S1 S2 regular rate and rhythm , ABDOMEN: Soft , no tenderness EXTREMITIES: No edema feet - Labs CBC & Chem 7: 11/08/23 03:46 11/08/23 03:46 Labs: Microbiology - Last 24 Hours (Table) 11/05/23 05:45 Blood Culture - Preliminary Blood Assessment and Plan (1) Urinary tract infection Current Visit: Yes Status: Acute Code(s): N39.0 - URINARY TRACT INFECTION, SITE NOT SPECIFIED SNOMED Code(s): 94376832 (2) E coli bacteremia Current Visit: Yes Status: Acute Code(s): R78.81 - BACTEREMIA; B96.20 - UNSP ESCHERICHIA COLI THE CAUSE OF DISEASES CLASSD [facility] SNOMED Code(s): 020253051423 Plan: 1patient with E. coli bacteremia which is likely secondary to urinary source patient did have positive UA interestingly no significant urinary symptoms at the same time the patient do not have any abdominal symptoms and no tenderness was noticed patient did have elevated creatinine will need to rule out any obstructive uropathy 2-ultrasound of the kidney bladder area did not show any hydronephrosis mention debris within the bladder 3-patient to continue with Rocephin 2 g daily while inpatient and plan is to finish therapy with oral antibiotics on discharge no need for midline Dictation was produced using [employer] dictation software. please excuse any grammatical, word or spelling errors. Time with Patient: Less than 30
--- NOTE | 2023-11-08 16:29 | P.PN ---
Subjective Progress Note Date: 11/08/23 Principal diagnosis: Reason for follow-up is E. coli bacteremia Patient is a 88-year-old female with a past medical history significant for hypertension presenting to the hospital for evaluation of weakness increasing shortness of breath patient did have evidence of E. coli bacteremia prompting this consultation. On today's evaluation that is 11/08/2023, patient has been afebrile, patient is breathing comfortably and is currently on 3 L nasal cannula patient denies having any significant cough no chest pain shortness of breath, patient denies nausea vomiting or diarrhea and no abdominal pain. Patient white count is 11.6 creatinine 0.7 0 repeat blood pressure has been negative Objective - Vital Signs Vital signs: Vital Signs Temp 97.4 F L 11/08/23 13:14 Pulse 74 11/08/23 14:59 Resp 19 11/08/23 13:14 BP 135/64 11/08/23 13:14 Pulse Ox 89 L 11/08/23 14:59 FiO2 Intake & Output 11/07/23 11/08/23 11/08/23 18:59 06:59 18:59 Other: # Voids 3 3 - Exam GENERAL DESCRIPTION: An elderly female lying in bed in no distress RESPIRATORY SYSTEM: Unlabored breathing , decreased breath sounds at bases HEART: S1 S2 regular rate and rhythm , ABDOMEN: Soft , no tenderness EXTREMITIES: No edema feet - Labs CBC & Chem 7: 11/08/23 03:46 11/08/23 03:46 Labs: Abnormal Lab Results - Last 24 Hours (Table) 11/08/23 11/08/23 Range/Units 03:46 03:46 WBC 11.6 H (3.8-10.6) k/uL Hgb 8.7 L (11.4-16.0) gm/dL Hct 29.9 L (34.0-46.0) % MCV 77.8 L (80.0-100.0) fL MCH 22.6 L (25.0-35.0) pg MCHC 29.0 L (31.0-37.0) g/dL RDW 16.5 H (11.5-15.5) % Carbon Dioxide 38 H (22-30) mmol/L BUN 31 H (7-17) mg/dL Microbiology - Last 24 Hours (Table) 04/25/24 05:45 Blood Culture - Preliminary Blood Assessment and Plan (1) Urinary tract infection Current Visit: Yes Status: Acute Code(s): N39.0 - URINARY TRACT INFECTION, SITE NOT SPECIFIED SNOMED Code(s): 72056186 (2) E coli bacteremia Current Visit: Yes Status: Acute Code(s): R78.81 - BACTEREMIA; B96.20 - UNSP ESCHERICHIA COLI THE CAUSE OF DISEASES CLASSD [facility] SNOMED Code(s): 845025058402 Plan: 1patient with E. coli bacteremia which is likely secondary to urinary source patient did have positive UA interestingly no significant urinary symptoms at the same time the patient do not have any abdominal symptoms and no tenderness was noticed patient did have elevated creatinine will need to rule out any obstructive uropathy 2-ultrasound of the kidney bladder area did not show any hydronephrosis mention debris within the bladder 3-patient to continue with Rocephin 2 g daily while inpatient and plan is to finish therapy with oral Cipro x 10 days on discharge Dictation was produced using [employer] dictation software. please excuse any grammatical, word or spelling errors. Time with Patient: Less than 30
--- NOTE | 2023-11-08 16:50 | XR ---
EXAM: XR chest 1V portable CLINICAL INDICATION:Female, 88 years old with history of PNA; [facility] COMPARISON: 11/04/2023 TECHNIQUE: Chest single view. FINDINGS: EKG leads overlie the chest. No indwelling lines are seen. There is oxygen tubing. Cardiac and mediastinal structures appear slightly shifted towards the left, which could be related t o patient rotation or sequela of volume loss. Heart appears enlarged. Calcified aorta. Similar appearance of diffuse interstitial coarsening throughout both lungs. Right lung shows no new or worsening infiltrate. At the left lung base there is increasing opacity which could be due to atel ectasis given the suggestion of volume loss. Small left pleural effusion not excluded. No visible pne umothorax. Osseous structures are grossly stable. IMPRESSION: Increased opacity at the left lung base, may be due to atelectasis over infiltrate. Small left effusi on not excluded.
[2023-11-08] MEDS: HEPARIN SODIUM,PORCINE 5,000 UNIT/ML 1 ML VIAL SQ SCH (21:04)
[2023-11-09 08:30] VITALS: BP 161/67; TEMP 97.9
[2023-11-09 08:36] LABS: HCT 27.4 % (37.2-46.3); MCH 22.4 pg (27.0-32.0); MCHC 29.2 g/dL (32.0-37.0); MCV 76.8 FL (80.0-97.0); Mean Platelet Volume 12.3 FL (9.5-12.2); NRBC Per 100 WBC 0 X 10*3/uL (0.00-0.01); Platelet Count 320 X 10*3/uL (140-440); RBC 3.57 X 10*6/uL (4.10-5.20); RDW 17.5 % (11.5-14.5); WBC 10.53 X 10*3/uL (4.50-10.00)
[2023-11-09 08:53] LABS: BUN/Creat Ratio 45.17 Ratio (12.00-20.00); Blood Urea Nitrogen 27.1 mg/dL (9.0-27.0); Calcium 8.8 mg/dL (8.7-10.3); Carbon Dioxide 32.4 mmol/L (21.6-31.8); Chloride 97 mmol/L (96-109); Glucose 80 mg/dL (70-110); Potassium 4.1 mmol/L (3.5-5.5); Sodium 138 mmol/L (135-145)
[2023-11-09 09:17] VITALS: RESP 18
[2023-11-09 12:20] VITALS: PULSE 82
--- NOTE | 2023-11-09 16:07 | P.DS ---
Providers Date of admission: 11/03/23 14:30 Expected date of discharge: 11/09/23 Attending physician: Marysol Medina DO Consults: 11/03/23 14:44 Consult Physician Routine Consulting Provider: Dariusz Brock Consult Reason/Comments: COPD, PNA Do you want consulting provider notified?: Yes 11/05/23 08:20 Consult Physician Routine Consulting Provider: Herlinda Vergara Consult Reason/Comments: e coli bacteremia Do you want consulting provider notified?: Yes Primary care physician: Fredy Mo Hospital Course: Discharge Diagnosis: Right lower lobe community-acquired pneumonia Acute exacerbation of COPD Acute hypoxic respiratory failure now chronic and due to COPD E. coli bacteremia Possible urinary tract infection per infectious disease Dehydration, resolved Acute kidney injury, resolved Elevated D-dimer, clinical suspicion for PE low Hypertension Dyslipidemia Hospital Course: Patient is an 88-year-old female with COPD, prior tobacco abuse, hypertension, and dyslipidemia who presented to the emergency department due to increased fatigue as well and has what cough and poor appetite. On arrival to the ER she was hypoxic with an O2 sat of 76% on room air. Initial laboratory analysis was remarkable for white blood cell count 11.2, sodium 136, potassium 3.4, BUN 60, creatinine 1.64. Influenza A/B/RSV/COVID-19 testing was negative. Initial chest x-ray demonstrated no acute cardiopulmonary process. Patient was admitted for possible pneumonia with sepsis and COPD exacerbation. She was started on antibiotics, bronchodilators, and steroids. Pulmonary was consulted. Patient had a blood culture positive for E. coli. UA was subsequently obtained which showed 66 white blood cells. She underwent VQ scan which was indeterminate for pulmonary embolism. Initially she was on some anticoagulation. However she then underwent venous Doppler which was negative for any sign of acute DVT. After discussion with pulmonary was felt that she had low probability of pulmonary embolism. Infectious disease was consulted who agreed with continuation of Rocephin. She was felt to have possible urinary tract infection. Patient underwent renal ultrasound which demonstrated debris within the urinary bladder but no signs of hydronephrosis. Repeat blood cultures were negative for 72 hours. Urine culture showed possible urogenital malachi. Her mentation and oxygenation continued to improve. Follow-up: Cipro 500 mg PO BID X 10 days, follow with Dr. Mo and Dr. rBock. Will need home O2 at 3 L nasal cannula due to room air O2 of 86% with exercise on room air. Her losartan hydrochlorothiazide was decreased to 5012 0.5 due to lower blood pressures when she came in. Patient seen and examined at bedside. Doing well. Breathing is almost near baseline. She is feeling good and wants to go home. She has no complaints at this time. She denies any diarrhea. Vital signs reviewed and stable. General: Nontoxic, no distress, appears at stated age Cardiovascular: S1S2 reg, no murmur, positive posterior tibial pulse bilateral, Lungs: Course bs bilateral, no rhonchi, no rales, no accessory muscle use Abdominal: Soft, nontender to palpation, no guarding, no appreciable organomegaly Ext: No gross muscle atrophy, no edema b/l lower extremities, no contractures Neuro: CN II-XI grossly intact, no focal neuro deficits Psych: Alert, oriented, appropriate affect A total of 45 minutes of time were spent preparing this complex discharge summary. Patient was discharged on 11/09/23. This dictation was prepared using [employer] voice recognition software. Though every attempt is made to correct errors during dictation some may still exist. Patient Condition at Discharge: Stable Plan - Discharge Summary Discharge Rx Participant: No New Discharge Prescriptions: New Ciprofloxacin HCl [Cipro] 500 mg PO Q12HR 10 Days #20 tab predniSONE [Deltasone] 20 mg PO DAILY #3 tab Losartan-Hctz 50-12.5 mg [Hyzaar 50-12.5] 1 tab PO DAILY #30 tablet Continue Atorvastatin [Lipitor] 80 mg PO DAILY Metoprolol Succinate [Toprol XL] 25 mg PO DAILY Alendronate Sodium [Fosamax] 70 mg PO BUI Ipratropium-Albuterol Nebulize [Duoneb 0.5 mg-3 mg/3 ml Soln] 3 ml INHALATION RT-QID Albuterol Sulfate [Albuterol Sulfate Hfa] 2 puff PO RT-Q6H PRN PRN Reason: Shortness Of Breath Discontinued Losartan/Hydrochlorothiazide [Hyzaar 100-12.5 Tablet] 1 tab PO DAILY Discharge Medication List Alendronate Sodium [Fosamax] 70 mg PO BUI 08/22/19 [History] Atorvastatin [Lipitor] 80 mg PO DAILY 08/22/19 [History] Metoprolol Succinate [Toprol XL] 25 mg PO DAILY 08/22/19 [History] Albuterol Sulfate [Albuterol Sulfate Hfa] 2 puff PO RT-Q6H PRN 11/03/23 [History] Ipratropium-Albuterol Nebulize [Duoneb 0.5 mg-3 mg/3 ml Soln] 3 ml INHALATION RT-QID 11/03/23 [History] Ciprofloxacin HCl [Cipro] 500 mg PO Q12HR 10 Days #20 tab 11/09/23 [Rx] Losartan-Hctz 50-12.5 mg [Hyzaar 50-12.5] 1 tab PO DAILY #30 tablet 11/09/23 [Rx] predniSONE [Deltasone] 20 mg PO DAILY #3 tab 11/09/23 [Rx] Follow up Appointment(s)/Referral(s): [facility] [NON-STAFF] - As Needed [facility] [NON-STAFF] - As Needed (Oxygen and walker) Radha Arshad, CAROLYN [REFERRING] - 1-2 days (office not answering Please call to schedule appointment) Dariusz Brock DO [Doctor of Osteopathic Medicine] - 11/17/23 9:00 am Activity/Diet/Wound Care/Special Instructions: Activity: As tolerated Diet: Regular Special Instructions: Required home oxygen due to hypoxia on room air from COPD [facility] if you develop diarrhea. Discharge Disposition: HOME WITH HOME HEALTH SERVICES
--- NOTE | 2023-11-09 18:20 | P.PN ---
Subjective Progress Note Date: 11/09/23 Patient is an 88-year-old female with past medical history significant for hypertension, hyperlipidemia, former tobacco smoker, and COPD. Patient is very hard of hearing. Her hearing aids have , and it is difficult to communicate. It appears that she has been suffering from shortness of breath pr ogressively worsening over the last 2 weeks. This is associated with a persistent congested cough with clear sputum. Denies sick contacts. Denies fevers or chills. Denies chest pain. Denies hemoptysis. Patient finally came to the emergency room yesterday morning. Chest x-ray shows a subtle airspace opacity of the right lower lobe, possibly developing pneumonia. CBC on arrival: WBC count 11.2, hemoglobin 9.1, hematocrit 31, platelets 219. BMP on arrival: Sodium 136, potassium 3.4, chloride 102, serum bicarb 23, BUN 60, creatinine 1.64, glucose 117. Normal saline is infusing at 75 mL/h. Lactic acid level not elevated. Troponin less than 0.12. D-dimer was elevated at 1.53. More likely alternative diagnosis of pneumonia than pulmonary embolism. Nontachycardic. Blood pressure normotensive. No personal or family history of thromboembolism. No recent trauma, surgery, or prolonged travel. Viral panel negative for influenza, RSV, COVID. Started on combination of empiric antibiotics for community-acquired pneumonia including azithromycin and Rocephin. Afebrile. Currently sitting up in bed, on 3 L/min nasal cannula, in no acute distress. Does not wear home O2. Hemodynamically stable. The patient is seen today November 05, 2023 in follow-up on the regular medical floor. She is currently resting comfortably in bed. Awake and alert in no acute distress. She is maintaining good O2 saturations in the 90s on 3 L/min per nasal cannula. Normal saline at 20 MLS per hour. Her blood cultures are positive for gram-negative bacilli. Chest x-ray showed evidence of COPD with scattered pleural-parenchymal opacities bilaterally. Ventilation/perfusion scan revealed matched defect of the right upper lobe. Matched defect in the right middle lobe. No perfusion ventilation mismatch is are present.. White count 12.4. Hemoglobin 8.8. Platelets 201. Sodium 138. Potassium 3.7. Bicarb 25. BUN 66. Creatinine 1.19. Glucose 136. She is currently on ceftriaxone. Gladys ins on bronchodilators and Solu-Medrol. The patient is seen today November 06, 2023 in follow-up on the regular medical floor. She is currently resting comfortably in bed. She is maintaining O2 satu rations in the 90s on 4 L/min per nasal cannula. She has normal saline at KVO. Doppler of the lower extremities were negative for DVT. Blood cultures are positive for E. coli. Urine culture revealed no growth. Follow-up cultures are pending. No new labs today. She remains on ceftriaxone. Continued on bronchodilators. Prednisone taper. The patient is seen today November 07, 2023 in follow-up on the regular medical floor. She is awake and alert in no acute distress. Resting fairly comfortably in bed. She is requiring 4 L nasal cannula oxygen to maintain O2 saturation in the 90s. She has normal saline at KVO. She continues with a loose cough and scattered rhonchi. She remains on ceftriaxone. Continues on bronchodilators and prednisone. Blood cultures are positive for E. coli. Urine culture revealed no growth. The patient is seen today November 08, 2023 in follow-up on the regular medical floor. She is resting comfortably in bed. Awake and alert in no acute distress. Maintaining O2 saturations in the 90s on 3 L/min per nasal cannula. She continues on bronchodilators. Remains on a prednisone. Continues on ceftriaxone. Blood cultures positive for E. coli. Urine culture revealed no growth. Follow-up blood cultures are pending. White count 11.6. Hemoglobin 8.7. Platelets 247. Sodium 137. Potassium 3.9. Bicarb 38. BUN 31. Creatinine 0.7. Glucose 89. On today's evaluation of 11/09/2023, the patient is doing well. The patient has a community-acquired right lower lobe pneumonia. The patient was treated with IV Rocephin. The patient also was bacteremic with E. coli source. No new complaints otherwise for now. WBC count at 10 with a hemoglobin of 8 and a platelet count of 320. Electrolytes are all within normal limits and the patient is also recovering from her acute kidney injury. No other significant events otherwise for now. The patient is currently on 3 L of oxygen by nasal cannula. The most recent chest x-ray from 11/08/2023 showed some left lower lobe atelectasis and small effusions. Objective - Vital Signs Vital signs: Vital Signs Temp 97.9 F 11/09/23 07:19 Pulse 82 11/09/23 12:23 Resp 18 11/09/23 12:23 BP 161/67 11/09/23 07:19 Pulse Ox 93 L 11/09/23 09:09 FiO2 Intake & Output 11/08/23 11/09/23 11/09/23 18:59 06:59 18:59 Other: # Voids 3 2 - Exam GENERAL EXAM: Alert, pleasant 88-year-old female, on 2 L nasal cannula, in no apparent distress. HEAD: Normocephalic and atraumatic EYES: Normal reaction of pupils, equal size. NOSE: Clear with pink turbinates. THROAT: No erythema or exudates. Dry mucous membranes NECK: No masses, no JVD. CHEST: No chest wall deformity. LUNGS: Equal air entry with few scattered rhonchi. No conversational dyspnea. CVS: S1 and S2 normal with no audible murmur, regular rhythm. No extra heart sounds ABDOMEN: No hepatosplenomegaly, active bowel sounds, no guarding or rigidity. SPINE: No scoliosis or deformity SKIN: No rashes CENTRAL NERVOUS SYSTEM: No focal deficits, tone is normal in all 4 extremities. EXTREMITIES: There is no peripheral edema, clubbing, or cyanosis. Peripheral pulses are intact. - Labs CBC & Chem 7: 11/09/23 03:32 11/09/23 03:32 Labs: Abnormal Lab Results - Last 24 Hours (Table) 11/09/23 11/09/23 Range/Units 03:32 03:32 WBC 10.53 H (4.50-10.00) X 10*3/uL RBC 3.57 L (4.10-5.20) X 10*6/uL Hgb 8.0 L (12.0-15.0) g/dL Hct 27.4 L (37.2-46.3) % MCV 76.8 L (80.0-97.0) FL MCH 22.4 L (27.0-32.0) pg MCHC 29.2 L (32.0-37.0) g/dL RDW 17.5 H (11.5-14.5) % MPV 12.3 H (9.5-12.2) FL Carbon Dioxide 32.4 H (21.6-31.8) mmol/L BUN 27.1 H (9.0-27.0) mg/dL BUN/Creatinine Ratio 45.17 H (12.00-20.00) Ratio Microbiology - Last 24 Hours (Table) 11/05/23 05:45 Blood Culture - Preliminary Blood Assessment and Plan Plan: Gram-negative sepsis with E. coli, rule out underlying pneumonia with secondary sepsis. The source this could be most likely an underlying urine tract infec tion. Pneumonia is felt to be less likely. Suspected right lower lobe community-acquired pneumonia. Chest x-ray shows a subtle airspace opacity of the right lower lobe, possibly developing pneumonia. Negative for influenza, RSV, COVID. Possible mild exacerbation of chronic obstructive pulmonary disease, secondary to above Acute hypoxemic respiratory failure, secondary to above, currently on 3 L Bacteremia secondary to E. coli, remains on ceftriaxone Former tobacco dependence, quit smoking 3 years ago Microcytic hypochromic anemia, no overt signs of acute blood loss Elevated D-dimer, clinical suspicion for PE is low. Ventilation/perfusion scan showed matched defects in the right upper and mid lobes. Severe dehydration and reduced oral intake Acute kidney injury, possibly secondary to above, improved and creatinine down to 0.70 History of hypertension History of hyperlipidemia Hard of hearing Plan: The patient is doing well. The patient is currently on 3 L of oxygen. The patient will be discharged on oral Cipro. I reviewed the chest x-rays again. I am not suspicious for a pneumonia. It is possible that the bacteremia with E. coli occurred secondary to underlying urinary tract infection. UA was quite abnormal at the time of admission and the urine cultures were obtained following antibiotic treatment. Obviously it was negative. In any rate, the patient is doing well. FiO2 should be gradually weaned off. Will complete the course of antibiotics. Cleared for discharge from pulmonary standpoint. She is doing well. Clinically stable. Hemodynamically stable.
--- NOTE | 2023-11-10 08:19 | P.PN ---
Subjective Progress Note Date: 11/09/23 Principal diagnosis: Reason for follow-up is E. coli bacteremia Patient is a 88-year-old female with a past medical history significant for hypertension presenting to the hospital for evaluation of weakness increasing shortness of breath patient did have evidence of E. coli bacteremia prompting this consultation. On today's evaluation that is 11/09/2023,the patient denies any fever or any chills, patient is breathing comfortably on 3 L nasal cannula oxygen, the pat ient denies chest pain shortness of breath and no significant cough, patient denies abdominal pain, no nausea vomiting or diarrhea has been reported. Patient white count is down to 10.53, creatinine 0.6 blood culture repeat has been negative Objective - Vital Signs Vital signs: Vital Signs Temp 97.9 F 11/09/23 07:19 Pulse 82 11/09/23 12:23 Resp 18 11/09/23 12:23 BP 161/67 11/09/23 07:19 Pulse Ox 93 L 11/09/23 09:09 FiO2 Intake & Output 11/08/23 11/09/23 11/09/23 18:59 06:59 18:59 Other: # Voids 3 2 - Exam GENERAL DESCRIPTION: An elderly female lying in bed in no distress RESPIRATORY SYSTEM: Unlabored breathing , decreased breath sounds at bases HEART: S1 S2 regular rate and rhythm , ABDOMEN: Soft , no tenderness EXTREMITIES: No edema feet - Labs CBC & Chem 7: 11/09/23 03:32 11/09/23 03:32 Labs: Abnormal Lab Results - Last 24 Hours (Table) 11/09/23 11/09/23 Range/Units 03:32 03:32 WBC 10.53 H (4.50-10.00) X 10*3/uL RBC 3.57 L (4.10-5.20) X 10*6/uL Hgb 8.0 L (12.0-15.0) g/dL Hct 27.4 L (37.2-46.3) % MCV 76.8 L (80.0-97.0) FL MCH 22.4 L (27.0-32.0) pg MCHC 29.2 L (32.0-37.0) g/dL RDW 17.5 H (11.5-14.5) % MPV 12.3 H (9.5-12.2) FL Carbon Dioxide 32.4 H (21.6-31.8) mmol/L BUN 27.1 H (9.0-27.0) mg/dL BUN/Creatinine Ratio 45.17 H (12.00-20.00) Ratio Microbiology - Last 24 Hours (Table) 11/05/23 05:45 Blood Culture - Preliminary Blood Assessment and Plan (1) Urinary tract infection Status: Acute Code(s): N39.0 - URINARY TRACT INFECTION, SITE NOT SPECIFIED SNOMED Code(s): 33151145 (2) E coli bacteremia Status: Acute Code(s): R78.81 - BACTEREMIA; B96.20 - UNSP ESCHERICHIA COLI THE CAUSE OF DISEASES [facility] SNOMED Code(s): 449292903783 Plan: 1patient with E. coli bacteremia which is likely secondary to urinary source patient did have positive UA interestingly no significant urinary symptoms at the same time the patient do not have any abdominal symptoms and no tenderness was noticed patient did have elevated creatinine will need to rule out any obstructive uropathy 2-ultrasound of the kidney bladder area did not show any hydronephrosis mention debris within the bladder 3-patient seem to have shown clinical improvement and patient white count normalized repeat blood culture has been negative, plan is to finish therapy with oral Cipro x 10 days on discharge and close outpatient follow-up Dictation was produced using [employer] software. please excuse any grammatical, word or spelling errors. Time with Patient: Less than 30
== END 2023-11-09 14:26 | disposition home health service (06) | DRG 871 ==
LOC: EC 09:55 → 4SSUR 14:30
PROVIDERS: ADMIT Internal Medicine; ATTEND Internal Medicine
DX: A41.51 Sepsis due to Escherichia coli [E. coli] (principal); E43 Unspecified severe protein-calorie malnutrition; J18.9 Pneumonia, unspecified organism; J96.01 Acute respiratory failure with hypoxia; Z68.1 Body mass index [BMI] 19.9 or less, adult; J44.0 Chronic obstructive pulmonary disease with (acute) lower respiratory infection; J44.1 Chronic obstructive pulmonary disease with (acute) exacerbation; N17.9 Acute kidney failure, unspecified; N39.0 Urinary tract infection, site not specified; J98.11 Atelectasis; E78.5 Hyperlipidemia, unspecified; I95.9 Hypotension, unspecified; E86.0 Dehydration; D50.9 Iron deficiency anemia, unspecified; H91.90 Unspecified hearing loss, unspecified ear; I10 Essential (primary) hypertension; R79.1 Abnormal coagulation profile; Z79.83 Long term (current) use of bisphosphonates; Z79.899 Other long term (current) drug therapy; Z20.822 Contact with and (suspected) exposure to COVID-19; Z87.891 Personal history of nicotine dependence
CPT/HCPCS: 36415; 71045; 71046; 76770; 78582; 80048; 80053; 81001; 82728; 82803; 83540; 83550; 83605; 83735; 84145; 84484; 85025; 85027; 85379; 85610; 85730; 87040; 87077; 87086; 87186; 87449; 87636; 93970; 94640; 94760; 96365; 96368; 96375; 96376; 99291